=== PATIENT | male | born 1940 | race Caucasian/White ===

== ENCOUNTER 2018-11-23 18:50 | Emergency (ER) | payer MEDICARE ==
[~2018-11-23] VITALS: Ht 180.3 cm; Wt 109.1 kg
[~2018-11-23 18:50] MED LIST: ASPI1CPM9 PO; NIA500ERT PO; NO HOME MEDS; THI100T PO; ZET10T PO
[2018-11-23 19:57] LABS: BASOPHILS % (AUTO) 0.5 % (0-1); EOSINOPHILS # (AUTO) 0.1 X10'3 (0-0.9); EOSINOPHILS % (AUTO) 1.1 % (0-6); LYMPHOCYTES # (AUTO) 1.1 X10'3 (1.1-4.8); LYMPHOCYTES % (AUTO) 13.4 % (21-51); MEAN CORPUSCULAR HEMOGLOBIN 32.1 PG (27.0-31.0); MEAN CORPUSCULAR HGB CONC 34.7 g/dL (33.0-36.5); MEAN CORPUSCULAR VOLUME 92.6 FL (78-98); MEAN PLATELET VOLUME 8.1 FL (7.4-10.4); MONOCYTES # (AUTO) 0.5 X10'3 (0-0.9); MONOCYTES % (AUTO) 5.9 % (2-12); NEUTROPHILS # (AUTO) 6.7 X10'3 (1.8-7.7); NEUTROPHILS % (AUTO) 79.1 % (42-75); PLATELET COUNT 259 X10'3 (140-440); RED BLOOD COUNT 4.97 X10'6 (4.70-6.10); RED CELL DISTRIBUTION WIDTH 13.2 % (11.5-14.5); WHITE BLOOD COUNT 8.4 X10'3 (4.5-11.0)
[2018-11-23 20:16] LABS: ALANINE AMINOTRANSFERASE 57 U/L (12-78); ALBUMIN 3.6 G/DL (3.4-5.0); ALKALINE PHOSPHATASE 108 IU/L (46-116); ANION GAP 10 (8-16); ASPARTATE AMINO TRANSFERASE 22 U/L (10-37); BILIRUBIN,TOTAL 0.2 MG/DL (0.1-1.0); BLOOD UREA NITROGEN 18 MG/DL (7-18); BUN/CREATININE RATIO 13.6 (5.4-32.0); CALCIUM 9.4 MG/DL (8.5-10.1); CHLORIDE 104 MMOL/L (99-107); CREATININE 1.32 MG/DL (0.60-1.10); GLUCOSE 157 MG/DL (70-104); POTASSIUM 4.3 MMOL/L (3.5-5.1); SODIUM 139 MMOL/L (135-145); TOTAL CARBON DIOXIDE 25.1 MMOL/L (24-32); TOTAL PROTEIN 7.3 G/DL (6.4-8.2); eGFR 53 ML/MIN
[2018-11-23 20:29] LABS: PARTIAL THROMBOPLASTIN TIME 25 SECONDS (22-32)
[2018-11-23] MEDS ORDERED: ROSU10TA2 PO (22:06)
[2018-11-23] MEDS ORDERED: METF500T PO (22:06)
[2018-11-23] MEDS ORDERED: OXYB5TAB11 PO (22:06)
[2018-11-23] MEDS ORDERED: aspirin 325mg tablet PO ONE (22:35)
[2018-11-23] MEDS ORDERED: ASPI81TA52 PO (22:36)
[2018-11-23 22:38] VITALS: BP 143/86
--- NOTE | 2018-11-23 23:12 | NUR ---
PT LEFT BEFORE HE RECEIVED HIS DISCHARGE PAPERWORK AND PT STILL HAD AN IV IN. CONTACTED PT AT HOME AND LEFT MESSAGE TO ASK PATIENT TO RETURN FOR RX AND TO HAVE IV DC'D. CONTACTED [facility] ALSO REGARDING IV.
== END 2018-11-23 23:54 | disposition home or self-care (01) ==
LOC: ER 18:51
DX: R42 Dizziness and giddiness (principal); I25.10 Atherosclerotic heart disease of native coronary artery without angina pectoris; E78.00 Pure hypercholesterolemia, unspecified; I10 Essential (primary) hypertension; I25.2 Old myocardial infarction; J44.9 Chronic obstructive pulmonary disease, unspecified; E11.9 Type 2 diabetes mellitus without complications; Z86.73 Personal history of transient ischemic attack (TIA), and cerebral infarction without residual deficits; Z98.61 Coronary angioplasty status; Z90.49 Acquired absence of other specified parts of digestive tract; Z98.890 Other specified postprocedural states; Z88.5 Allergy status to narcotic agent; Z79.82 Long term (current) use of aspirin; Z79.84 Long term (current) use of oral hypoglycemic drugs; Z79.899 Other long term (current) drug therapy
CPT/HCPCS: 36415; 71045; 80053; 84484; 85025; 85610; 85730; 93005; 99284

== ENCOUNTER 2019-03-01 15:40 | Inpatient (IN) | payer MEDICARE ==
[~2019-03-01] VITALS: Ht 180.3 cm; Wt 101.0 kg
[~2019-03-01 15:40] MED LIST changes: -ASPI1CPM9 PO; +ASPI81TA52 PO; +METF500T PO; -NIA500ERT PO; -NO HOME MEDS; +OXYB5TAB16 PO; +ROSU10TA2 PO; -THI100T PO; -ZET10T PO; +etomidate 2mg/ml inj. ONE
[2019-03-01] MEDS ORDERED: LORazepam 2 mg/ml vial IV ONE (15:50)
[2019-03-01] MEDS ORDERED: normal saline 1000ML IV soln IVB ONE ×2 (15:50→17:25)
[2019-03-01] MEDS ORDERED: acetaminophen 325mg tablet PO ONE (16:10)
[2019-03-01 16:16] LABS: BASOPHILS % (AUTO) 0.6 % (0-1); EOSINOPHILS % (AUTO) 0.2 % (0-6); HEMATOCRIT 45.2 % (42.0-52.0); HEMOGLOBIN 15.3 g/dl (14.0-17.9); LYMPHOCYTES # (AUTO) 0.4 X10'3 (1.1-4.8); MEAN CORPUSCULAR HEMOGLOBIN 31.9 PG (27.0-31.0); MEAN CORPUSCULAR HGB CONC 33.8 g/dL (33.0-36.5); MEAN CORPUSCULAR VOLUME 94.2 FL (78-98); MEAN PLATELET VOLUME 7.8 FL (7.4-10.4); MONOCYTES % (AUTO) 1.5 % (2-12); NEUTROPHILS # (AUTO) 1.3 X10'3 (1.8-7.7); NEUTROPHILS % (AUTO) 73.7 % (42-75); PLATELET COUNT 172 X10'3 (140-440); RED BLOOD COUNT 4.79 X10'6 (4.70-6.10); RED CELL DISTRIBUTION WIDTH 14.4 % (11.5-14.5); WHITE BLOOD COUNT 1.7 X10'3 (4.5-11.0)
[2019-03-01 16:32] LABS: ALANINE AMINOTRANSFERASE 180 U/L (12-78); ALBUMIN 3.3 G/DL (3.4-5.0); ALBUMIN/GLOBULIN RATIO 0.8 (1.1-1.5); ALKALINE PHOSPHATASE 154 IU/L (46-116); ANION GAP 14 (8-16); ASPARTATE AMINO TRANSFERASE 137 U/L (10-37); BLOOD UREA NITROGEN 18 MG/DL (7-18); BUN/CREATININE RATIO 12.6 (5.4-32.0); CALCIUM 9.1 MG/DL (8.5-10.1); CHLORIDE 101 MMOL/L (99-107); CREATININE 1.43 MG/DL (0.60-1.10); GLUCOSE 158 MG/DL (70-104); POTASSIUM 4.2 MMOL/L (3.5-5.1); SODIUM 137 MMOL/L (135-145); TOTAL CARBON DIOXIDE 21.9 MMOL/L (24-32); TOTAL PROTEIN 7.4 G/DL (6.4-8.2); eGFR 48 ML/MIN
[2019-03-01 16:35] LABS: NUCLEATED RED BLOOD CELLS 1 /100WBC (0-0); TOTAL CELLS COUNTED 100
[2019-03-01 16:37] LABS: PLATELET ESTIMATE NORMAL; POLYCHROMASIA FEW
[2019-03-01] MEDS ORDERED: piperacillin/tazo 4.5gm/100ml 100 ML IV STA (16:38)
[2019-03-01 16:40] LABS: MAGNESIUM 1.8 MG/DL (1.5-2.4); TROPONIN I 0.06 NG/ML (0.0-0.05)
[2019-03-01] MEDS ORDERED: normal saline 1000ML IV soln IV ONE (16:40)
[2019-03-01] MEDS ORDERED: CefTRIAXone 2gm/D5W 50ml 50 ML IV ONE (16:40)
[2019-03-01 17:00] LABS: PARTIAL THROMBOPLASTIN TIME 28 SECONDS (22-32)
--- NOTE | 2019-03-01 17:18 | NUR ---
Dr James at bedside at this time to assess patient on room air, SPO2 dropped to 89%, placed back on simple mask on 4L. MD made aware of T 102.1, also recomended 1 more liter of NS as recommended per sepsis protocol. MD to enter order for 1L NS at 500 ml/hr. Patient HOB elevated, tremors present but significantly improved.
[2019-03-01] MEDS ORDERED: IPRA4AER IH (17:29)
[2019-03-01] MEDS ORDERED: OXYB10TA4 PO (17:29)
[2019-03-01] MEDS ORDERED: POLY17PO10 PO (17:29)
[2019-03-01] MEDS ORDERED: BUDE10.22 INH (17:29)
[2019-03-01] MEDS ORDERED: DULO20CA50 PO (17:29)
[2019-03-01] MEDS ORDERED: ROSU20TA31 PO (17:29)
[2019-03-01] MEDS ORDERED: magnesium 2GM in 50ml NS 50 ML IV PRN (18:30)
[2019-03-01] MEDS ORDERED: ondansetron/PF 4mg/2ml inj IV PRN (18:30)
[2019-03-01] MEDS ORDERED: dextrose 50%-water 50ml dispensing syringe IV PRN (18:30)
[2019-03-01] MEDS ORDERED: magnesium hydroxide 30ml (MOM) UD suspension PO PRN (18:30)
[2019-03-01] MEDS ORDERED: magnesium 4gm in 100ml NS 100 ML IV PRN (18:30)
[2019-03-01] MEDS ORDERED: thiamine 100mg/ml 2ml inj. IV ONE (18:30)
[2019-03-01] MEDS ORDERED: morphine 2 MG/ML inj. syringe IV PRN (18:30)
[2019-03-01] MEDS ORDERED: haloperidol 5mg tablet PO PRN (18:30)
[2019-03-01] MEDS ORDERED: acetaminophen 325mg tablet PO PRN ×2 (18:30)
[2019-03-01] MEDS ORDERED: morphine 4 MG/ML inj SYRINge IV PRN (18:30)
[2019-03-01] MEDS ORDERED: potassium Cl 20 mEq SR tablet PO PRN ×2 (18:30)
[2019-03-01] MEDS ORDERED: haloperidol lactate 5mg/ml inj IM PRN (18:30)
[2019-03-01] MEDS ORDERED: magnesium Cl slow-release 64mg tablet PO PRN (18:30)
[2019-03-01] MEDS ORDERED: HYDROcodone/acetaminophen 5mg/325mg tablet PO PRN (18:50)
[2019-03-01 19:26] LABS: CLARITY,URINE CLOUDY (Clear); COLOR,URINE AMBER (Yellow); GLUCOSE, URINE NEGATIVE (Neg); KETONES,URINE 15 mg/dl (Neg); LEUKOCYTE ESTERASE ,URINE SMALL (Neg); NITRITES, URINE POSITIVE (Neg); OCCULT BLOOD,URINE MODERATE (Neg); PH,URINE 5.5 (4.8-8.0); PROTEIN,URINE 100 mg/dl (Neg)
[2019-03-01 19:29] LABS: UA COLLECTION TYPE FOLEY CATH
[2019-03-01 19:39] LABS: BACTERIA,URINE 4+ /HPF (Neg); RBC,URINE NONE SEEN /HPF (0-2); SQUAMOUS EPITHELIAL CELL,UR FEW /LPF (FEW); WBC,URINE 20-30 /HPF (0-4)
[2019-03-01] MEDS ORDERED: aspirin 325mg tablet PO ONE (19:40)
[2019-03-01] MEDS ORDERED: enoxaparin 100mg/ml syringe SUBCUT ONE (19:40)
[2019-03-01] MEDS ORDERED: vancomycin/NS 1 GM ADD-VANTAGE 250 ML IV SCH (20:00)
[2019-03-01] MEDS: LORazepam 2 mg/ml vial IV PRN (20:43)
[2019-03-01] MEDS: normal saline 1000ml 1,000 ML IV SCH (20:47)
[2019-03-01] MEDS: ipratropium/albuterol 3ml nebule NEB PRN (20:56)
--- NOTE | 2019-03-01 23:15 | NUR ---
REPORT CALLED TO MAC IN ICU , CASE DISCUSSED, TREATMENT PLAN REVIEWED,EVP CHIEF EXPLORATION OFFICER AGREES TO ASSUME CARE OF PATIENT. PATIENT TO BE TRANSPORTED ON MONITOR WITH BELONGINGS.
--- NOTE | 2019-03-01 23:39 | NUR ---
RN Note -Received pt from ED. Pt is drowsy, but awake and and oriented. STERN, answers questions appropriately, denies pain.
[2019-03-01 23:45] VITALS: BP 103/69
[2019-03-02] VITALS (24 sets, daily range): BP systolic 90–144; BP diastolic 33–83
[2019-03-02] MEDS: ipratropium/albuterol 3ml nebule NEB PRN (01:59)
[2019-03-02] MEDS: piperacillin/tazo 3.375gm/50ml 50 ML IV SCH ×3 (02:06→16:18)
[2019-03-02 05:37] LABS: HEMOGLOBIN 13.6 g/dl (14.0-17.9)
[2019-03-02 05:39] LABS: BASOPHILS % (AUTO) 0.2 % (0-1); EOSINOPHILS # (AUTO) 0.1 X10'3 (0-0.9); EOSINOPHILS % (AUTO) 0.6 % (0-6); LYMPHOCYTES # (AUTO) 1.1 X10'3 (1.1-4.8); MEAN CORPUSCULAR HEMOGLOBIN 32.7 PG (27.0-31.0); MEAN CORPUSCULAR VOLUME 96.2 FL (78-98); MEAN PLATELET VOLUME 8.3 FL (7.4-10.4); MONOCYTES # (AUTO) 1.1 X10'3 (0-0.9); MONOCYTES % (AUTO) 10.9 % (2-12); NEUTROPHILS % (AUTO) 77.3 % (42-75); PLATELET COUNT 152 X10'3 (140-440); RED BLOOD COUNT 4.16 X10'6 (4.70-6.10); RED CELL DISTRIBUTION WIDTH 14.7 % (11.5-14.5); WHITE BLOOD COUNT 10.4 X10'3 (4.5-11.0)
[2019-03-02 05:49] LABS: ALBUMIN 2.6 G/DL (3.4-5.0); ANION GAP 9 (8-16); BLOOD UREA NITROGEN 19 MG/DL (7-18); BUN/CREATININE RATIO 14.5 (5.4-32.0); CALCIUM 8.1 MG/DL (8.5-10.1); CHLORIDE 108 MMOL/L (99-107); CREATININE 1.31 MG/DL (0.60-1.10); GLUCOSE 123 MG/DL (70-104); MAGNESIUM 2.2 MG/DL (1.5-2.4); POTASSIUM 4.5 MMOL/L (3.5-5.1); SODIUM 140 MMOL/L (135-145); TOTAL CARBON DIOXIDE 23.2 MMOL/L (24-32); eGFR 53 ML/MIN
[2019-03-02 06:18] LABS: TROPONIN I 2.87 NG/ML (0.0-0.05)
--- NOTE | 2019-03-02 06:39 | NUR ---
Patient in room CICU 2008. I have received report from DOC Rosas and had the opportunity to ask questions and assume patient care.
[2019-03-02 07:01] LABS: HEMOGLOBIN A1C 6.7 % (4.5-6.2)
[2019-03-02] MEDS: ipratropium/albuterol 3ml nebule IH SCH ×4 (07:06→19:21)
[2019-03-02 07:27] LABS: PLATELET ESTIMATE NORMAL; POLYCHROMASIA 1+; TOTAL CELLS COUNTED 100
[2019-03-02] MEDS: normal saline 1000ml 1,000 ML IV SCH ×2 (07:47→21:07)
[2019-03-02] MEDS ORDERED: pantoprazole 40 MG vial IV SCH (08:00)
[2019-03-02] MEDS: polyethylene glycol 3350 17gm powd pack PO SCH (08:00)
[2019-03-02] MEDS: multivitamins, therapeutics tablet PO SCH (08:01)
[2019-03-02] MEDS: atorvastatin 20mg tablet PO SCH (08:01)
[2019-03-02] MEDS: thiamine 100mg tablet PO SCH (08:01)
[2019-03-02] MEDS: oxybutynin 5mg tablet PO SCH ×2 (08:01→20:08)
[2019-03-02] MEDS: folic acid 1mg tablet PO SCH (08:01)
[2019-03-02] MEDS: chlordiazePOXIDE 25mg capsule PO SCH ×2 (10:20→16:12)
[2019-03-02] MEDS: enoxaparin 80mg/0.8ml syringe SUBCUT SCH ×2 (10:21→20:09)
[2019-03-02] MEDS: budesonide 0.5mg/2ml UD nebule IH SCH ×2 (10:50→19:21)
[2019-03-02] MEDS: LORazepam 2 mg/ml vial IV PRN ×7 (11:31→20:16)
--- NOTE | 2019-03-02 13:47 | NUR ---
Dr. Parker aware of trop 3.78. No new orders at this time
[2019-03-02] MEDS ORDERED: aspirin 325mg tablet PO ONE (15:45)
--- NOTE | 2019-03-02 18:30 | NUR ---
Patient in room CICU 2008. I have received report from DOC Taylor and had the opportunity to ask questions and assume patient care.
--- NOTE | 2019-03-02 18:45 | NUR ---
Problems reprioritized. Patient report given, questions answered & plan of care reviewed with DOC Vergara.
[2019-03-03] VITALS (24 sets, daily range): BP systolic 89–184; BP diastolic 44–125
[2019-03-03] MEDS: LORazepam 2 mg/ml vial IV PRN ×4 (00:11→08:27)
[2019-03-03] MEDS: piperacillin/tazo 3.375gm/50ml 50 ML IV SCH ×3 (00:34→17:22)
[2019-03-03] MEDS: chlordiazePOXIDE 25mg capsule PO SCH ×4 (00:34→16:00)
--- NOTE | 2019-03-03 01:00 | NUR ---
Unable to give Librium 0000 dose due to patient's mentation. Patient failed bedside swallow evaluation after mentation worsened as withdrawing symptoms worsened.
[2019-03-03] MEDS: acetaminophen 650mg rectal suppository RC PRN ×3 (01:21→20:00)
[2019-03-03] MEDS: ipratropium/albuterol 3ml nebule NEB PRN (03:10)
[2019-03-03 05:52] LABS: BASOPHILS % (AUTO) 0.3 % (0-1); EOSINOPHILS # (AUTO) 0.1 X10'3 (0-0.9); EOSINOPHILS % (AUTO) 0.8 % (0-6); HEMATOCRIT 42.7 % (42.0-52.0); HEMOGLOBIN 14.3 g/dl (14.0-17.9); LYMPHOCYTES # (AUTO) 0.6 X10'3 (1.1-4.8); LYMPHOCYTES % (AUTO) 7.6 % (21-51); MEAN CORPUSCULAR HEMOGLOBIN 31.8 PG (27.0-31.0); MEAN CORPUSCULAR HGB CONC 33.4 g/dL (33.0-36.5); MEAN CORPUSCULAR VOLUME 95.2 FL (78-98); MEAN PLATELET VOLUME 8.5 FL (7.4-10.4); MONOCYTES # (AUTO) 1.1 X10'3 (0-0.9); MONOCYTES % (AUTO) 13.3 % (2-12); NEUTROPHILS # (AUTO) 6.6 X10'3 (1.8-7.7); PLATELET COUNT 164 X10'3 (140-440); RED BLOOD COUNT 4.48 X10'6 (4.70-6.10); WHITE BLOOD COUNT 8.4 X10'3 (4.5-11.0)
[2019-03-03] MEDS: normal saline 1000ml 1,000 ML IV SCH ×2 (05:57→23:47)
[2019-03-03 06:14] LABS: ALBUMIN 2.7 G/DL (3.4-5.0); ANION GAP 14 (8-16); BLOOD UREA NITROGEN 16 MG/DL (7-18); BUN/CREATININE RATIO 14.4 (5.4-32.0); CALCIUM 8.7 MG/DL (8.5-10.1); CHLORIDE 104 MMOL/L (99-107); CREATININE 1.11 MG/DL (0.60-1.10); GLUCOSE 108 MG/DL (70-104); MAGNESIUM 2.2 MG/DL (1.5-2.4); POTASSIUM 3.9 MMOL/L (3.5-5.1); SODIUM 140 MMOL/L (135-145); eGFR 64 ML/MIN
--- NOTE | 2019-03-03 06:30 | NUR ---
Patient in room CICU 2009. I have received report from nick and had the opportunity to ask questions and assume patient care.
--- NOTE | 2019-03-03 06:44 | NUR ---
Problems reprioritized. Patient report given, questions answered & plan of care reviewed with DOC Wilson.
[2019-03-03] MEDS: ipratropium/albuterol 3ml nebule IH SCH ×4 (07:10→18:50)
[2019-03-03] MEDS: budesonide 0.5mg/2ml UD nebule IH SCH ×2 (07:10→18:50)
[2019-03-03] MEDS ORDERED: VANCOMYCIN LEVEL IV ONE (07:30)
[2019-03-03] MEDS: folic acid 1mg tablet PO SCH (08:00)
[2019-03-03] MEDS: atorvastatin 20mg tablet PO SCH (08:00)
[2019-03-03] MEDS: thiamine 100mg tablet PO SCH (08:00)
[2019-03-03] MEDS: polyethylene glycol 3350 17gm powd pack PO SCH (08:00)
[2019-03-03] MEDS: duloxetine 20mg capsule.DR PO SCH (08:00)
[2019-03-03] MEDS: multivitamins, therapeutics tablet PO SCH (08:00)
[2019-03-03] MEDS: aspirin 81mg tablet.DR PO SCH (08:00)
[2019-03-03] MEDS: oxybutynin 5mg tablet PO SCH ×2 (08:00→20:00)
[2019-03-03] MEDS ORDERED: aspirin 81mg tab.chew PO SCH (08:30)
--- NOTE | 2019-03-03 08:40 | NUR ---
pt opened his eyes once to care, mostly not after.pt tachypneic with restlessness- stridor- ativan 4mg given with some calmness
[2019-03-03] MEDS: enoxaparin 80mg/0.8ml syringe SUBCUT SCH ×2 (08:41→20:00)
[2019-03-03] MEDS ORDERED: dexmedetomidin/NS 400mcg/100ml 100 ML IV SCH (09:20)
--- NOTE | 2019-03-03 09:27 | NUR ---
Dr. Braun ordered for precedex gtt to be started IV per protocol.
[2019-03-03] MEDS: ESOMEPRAZOLE 40 MG VIAL IV SCH (09:51)
[2019-03-03] MEDS: dexmedetomidin/NS 400mcg/100ml 100 ML IV SCH ×2 (10:07→17:25)
--- NOTE | 2019-03-03 10:15 | NUR ---
precedex started at starting dose- pt calmer- tyleno supp given- temp decreasing
--- NOTE | 2019-03-03 12:00 | NUR ---
ht down to 90's- with sbp-to 90's- precedex up to .5 then back down to .4
--- NOTE | 2019-03-03 15:00 | NUR ---
temp to 36.5 after supp. pt quite sleepy, not really responding to pain now. precedex down to .2- hr to 80's and sbp to 80's with map of 60. dr davis back to check on pt- no longer struggling with high rr- will hold of intubation. o2 to mouth for mouth breathing with sats from 89 to 92 when fio2 to 6lnc from 3l.
--- NOTE | 2019-03-03 15:49 | NUR ---
nc switched to simple mask at 8 liters by rt- sats at 92 % in and out updated. diet not offered or po meds as pt at risk for aspiration and mostly sedated and not awake
--- NOTE | 2019-03-03 17:44 | NUR ---
pt moaned with turn- precedex down then up again with increased rr and hr.
[2019-03-03] MEDS ORDERED: LORazepam 1 MG tablet PO PRN (18:30)
[2019-03-03] MEDS ORDERED: LORazepam 2 mg/ml vial IV PRN (18:30)
--- NOTE | 2019-03-03 18:31 | NUR ---
Patient in room CICU 2008. I have received report from DOC Wilson and had the opportunity to ask questions and assume patient care.
[2019-03-03] MEDS: lactobacillus rhamnosus 10,000 MMU CELLS/CAPSULE PO SCH (20:00)
[2019-03-03] MEDS ORDERED: furosemide 20 MG/2 ML vial IV ONE (20:00)
--- NOTE | 2019-03-03 20:30 | NUR ---
Around 1899, patient work of breathing began to increase, RR was increased to 30s and 40s, O2 was in mid to high 80's, HR was increased to 115-120's from 80-90's, BP increased to 190 systolic from 120, and temperature spiked from 37.1 to 38.6. July,HOLLOW TILE PARTITION ERECTOR was notified of change in patient's condition. ABG was ordered, ABG showed patient was acidotic and in need for bipap, bipap was placed on patient at 50% fio2 and will be titrated as patient tolerates. Xray was also obtained and showed pulmonary congestion. Lasix was ordered and given. CMP ordered and abnormal labs reviewed with HOLLOW TILE PARTITION ERECTOR. Repeat ABG has been ordered for 2129. Will continue to monitor patient and notify HOLLOW TILE PARTITION ERECTOR of changes as they arise.
[2019-03-03 20:36] LABS: BASOPHILS % (AUTO) 0.3 % (0-1); EOSINOPHILS # (AUTO) 0.1 X10'3 (0-0.9); EOSINOPHILS % (AUTO) 0.8 % (0-6); HEMATOCRIT 45.7 % (42.0-52.0); HEMOGLOBIN 14.8 g/dl (14.0-17.9); LYMPHOCYTES # (AUTO) 0.5 X10'3 (1.1-4.8); LYMPHOCYTES % (AUTO) 6.9 % (21-51); MEAN CORPUSCULAR HGB CONC 32.4 g/dL (33.0-36.5); MEAN CORPUSCULAR VOLUME 95.8 FL (78-98); MEAN PLATELET VOLUME 8.2 FL (7.4-10.4); MONOCYTES # (AUTO) 1.1 X10'3 (0-0.9); MONOCYTES % (AUTO) 14.4 % (2-12); NEUTROPHILS % (AUTO) 77.6 % (42-75); PLATELET COUNT 172 X10'3 (140-440); RED BLOOD COUNT 4.77 X10'6 (4.70-6.10); RED CELL DISTRIBUTION WIDTH 15.6 % (11.5-14.5); WHITE BLOOD COUNT 7.7 X10'3 (4.5-11.0)
[2019-03-03 20:56] LABS: ALANINE AMINOTRANSFERASE 119 U/L (12-78); ALBUMIN 2.6 G/DL (3.4-5.0); ALBUMIN/GLOBULIN RATIO 0.6 (1.1-1.5); ALKALINE PHOSPHATASE 127 IU/L (46-116); ANION GAP 11 (8-16); ASPARTATE AMINO TRANSFERASE 47 U/L (10-37); BILIRUBIN,TOTAL 0.5 MG/DL (0.1-1.0); BLOOD UREA NITROGEN 17 MG/DL (7-18); BUN/CREATININE RATIO 15.7 (5.4-32.0); CALCIUM 8.7 MG/DL (8.5-10.1); CHLORIDE 108 MMOL/L (99-107); CREATININE 1.08 MG/DL (0.60-1.10); GLUCOSE 130 MG/DL (70-104); POTASSIUM 5.3 MMOL/L (3.5-5.1); SODIUM 140 MMOL/L (135-145); TOTAL CARBON DIOXIDE 21.2 MMOL/L (24-32); eGFR 66 ML/MIN
[2019-03-03] MEDS ORDERED: atorvastatin 20mg tablet PO SCH (21:00)
[2019-03-03 21:04] LABS: MAGNESIUM 2.4 MG/DL (1.5-2.4); PHOSPHORUS 3.8 MG/DL (2.3-4.5)
--- NOTE | 2019-03-03 21:15 | NUR ---
Patient's blood pressure dropped to 83/48, HR has slowed to 90's, work of breathing has improved, respirations are in 20's, temperature remains the same despite tylenol suppository administration, NUTRIENT MANAGEMENT SPECIALIST aware.
[2019-03-04] VITALS (24 sets, daily range): BP systolic 89–178; BP diastolic 48–129
[2019-03-04] MEDS: piperacillin/tazo 3.375gm/50ml 50 ML IV SCH ×3 (00:24→16:19)
[2019-03-04] MEDS: dexmedetomidin/NS 400mcg/100ml 100 ML IV SCH ×4 (02:41→22:08)
[2019-03-04 06:06] LABS: BASOPHILS % (AUTO) 0.3 % (0-1); EOSINOPHILS % (AUTO) 0.7 % (0-6); HEMATOCRIT 38.2 % (42.0-52.0); HEMOGLOBIN 12.5 g/dl (14.0-17.9); LYMPHOCYTES # (AUTO) 0.6 X10'3 (1.1-4.8); LYMPHOCYTES % (AUTO) 9.8 % (21-51); MEAN CORPUSCULAR HEMOGLOBIN 30.7 PG (27.0-31.0); MEAN CORPUSCULAR HGB CONC 32.8 g/dL (33.0-36.5); MEAN CORPUSCULAR VOLUME 93.7 FL (78-98); MONOCYTES # (AUTO) 0.9 X10'3 (0-0.9); MONOCYTES % (AUTO) 13.9 % (2-12); NEUTROPHILS # (AUTO) 4.6 X10'3 (1.8-7.7); NEUTROPHILS % (AUTO) 75.3 % (42-75); PLATELET COUNT 177 X10'3 (140-440); RED BLOOD COUNT 4.08 X10'6 (4.70-6.10); WHITE BLOOD COUNT 6.2 X10'3 (4.5-11.0)
[2019-03-04 06:19] LABS: ALBUMIN 2.1 G/DL (3.4-5.0); ANION GAP 9 (8-16); BLOOD UREA NITROGEN 18 MG/DL (7-18); BUN/CREATININE RATIO 18.6 (5.4-32.0); CHLORIDE 109 MMOL/L (99-107); CREATININE 0.97 MG/DL (0.60-1.10); GLUCOSE 144 MG/DL (70-104); POTASSIUM 4.4 MMOL/L (3.5-5.1); SODIUM 141 MMOL/L (135-145); TOTAL CARBON DIOXIDE 22.9 MMOL/L (24-32); eGFR 75 ML/MIN
--- NOTE | 2019-03-04 06:28 | NUR ---
Problems reprioritized. Patient report given, questions answered & plan of care reviewed with DOC Rainey.
[2019-03-04] MEDS: normal saline 1000ml 1,000 ML IV SCH (06:36)
[2019-03-04] MEDS: budesonide 0.5mg/2ml UD nebule IH SCH ×2 (06:54→19:12)
[2019-03-04] MEDS: ipratropium/albuterol 3ml nebule IH SCH ×4 (06:54→19:12)
[2019-03-04] MEDS: oxybutynin 5mg tablet PO SCH ×2 (08:00→18:22)
[2019-03-04] MEDS: duloxetine 20mg capsule.DR PO SCH (08:00)
[2019-03-04] MEDS ORDERED: DEXTROSE 5% IV SCH (08:00)
[2019-03-04] MEDS: lactobacillus rhamnosus 10,000 MMU CELLS/CAPSULE PO SCH ×2 (08:00→18:22)
[2019-03-04] MEDS: chlordiazePOXIDE 25mg capsule PO SCH ×4 (08:00→21:19)
[2019-03-04] MEDS: polyethylene glycol 3350 17gm powd pack PO SCH (08:00)
[2019-03-04] MEDS ORDERED: FOLIC ACID IV SCH (08:00)
[2019-03-04] MEDS: aspirin 81mg tablet.DR PO SCH (08:00)
[2019-03-04] MEDS ORDERED: THIAMINE IV SCH (08:00)
[2019-03-04] MEDS: atorvastatin 20mg tablet PO SCH (08:00)
[2019-03-04] MEDS ORDERED: WATER IV SCH (08:00)
[2019-03-04] MEDS: MVI, adult No.4 with vit. K 10 ML in dextrose 5% water 500ml 500 ML IV SCH ×2 (08:05)
[2019-03-04] MEDS: ESOMEPRAZOLE 40 MG VIAL IV SCH (08:05)
[2019-03-04] MEDS: enoxaparin 80mg/0.8ml syringe SUBCUT SCH ×2 (08:06→20:14)
--- NOTE | 2019-03-04 18:20 | NUR ---
Patient in room CICU 2008. I have received report from DOC Rainey and had the opportunity to ask questions and assume patient care.
[2019-03-04] MEDS: LORazepam 2 mg/ml vial IV PRN ×2 (18:53→23:51)
--- NOTE | 2019-03-04 19:09 | NUR ---
Patient became agitated and restless, HR is low 100s, RR in 30s, maintained sats in mid 90's with bipap, became hypertensive 178/129. Patient received 4mg of Ativan per MD order and Precedex was increased. It took approximately 10 minutes to calm patient down. He is now resting comfortably, BP 134/71, HR in 80's, RR in 20's. Patient has a fever 38.4 now, will give patient tylenol suppository after allowing patient to recover a little more. Noticed that patient has discoloration to his nose, will attempt to give patient break from bipap and check for blanching as well as take a picture for our records.
--- NOTE | 2019-03-04 19:34 | NUR ---
Bipap mask is now off patient to give patient's nose a break, the discoloration is purple and nonblanchable. Pictures have been taken and placed in the chart. Patient is now on a high flow nasal cannula at 10L and is tolerating well. Will place patient on a face mask bipap if he require bipap at later time.
[2019-03-05] VITALS (24 sets, daily range): BP systolic 77–221; BP diastolic 41–124
[2019-03-05] MEDS: ipratropium/albuterol 3ml nebule NEB PRN
[2019-03-05] MEDS: piperacillin/tazo 3.375gm/50ml 50 ML IV SCH ×3 (00:26→15:15)
[2019-03-05] MEDS: LORazepam 2 mg/ml vial IV PRN (01:54)
--- NOTE | 2019-03-05 02:55 | NUR ---
Spoke to Kimberly Snider NP regarding patient being in distress. Patient was given ativan about an hour ago and precedex was titrated up and patient did not fully recover. I have gone up on his fio2 which is up to 50% at this time due to sats being in mid to high 80's. Patient is also hypertensive, last blood pressure being 227/123. LABORER ROAD ordered that I continue to go up on his precedex and to get ABG. I have gone up on the precedex and paged RT after putting in the ABG order. Now awaiting RT.
[2019-03-05] MEDS: normal saline 1000ml 1,000 ML IV SCH ×2 (03:05→14:46)
[2019-03-05] MEDS ORDERED: midazolam 2 mg/2 ml injection ONE (03:31)
[2019-03-05 03:48] LABS: ALBUMIN 2.4 G/DL (3.4-5.0); ANION GAP 10 (8-16); BLOOD UREA NITROGEN 19 MG/DL (7-18); BUN/CREATININE RATIO 20.9 (5.4-32.0); CALCIUM 8.8 MG/DL (8.5-10.1); CHLORIDE 108 MMOL/L (99-107); CREATININE 0.91 MG/DL (0.60-1.10); GLUCOSE 152 MG/DL (70-104); POTASSIUM 4.3 MMOL/L (3.5-5.1); SODIUM 141 MMOL/L (135-145); TOTAL CARBON DIOXIDE 23.3 MMOL/L (24-32); eGFR 81 ML/MIN
[2019-03-05 03:52] LABS: BASOPHILS % (AUTO) 0.4 % (0-1); EOSINOPHILS # (AUTO) 0.1 X10'3 (0-0.9); EOSINOPHILS % (AUTO) 0.9 % (0-6); HEMATOCRIT 46.4 % (42.0-52.0); HEMOGLOBIN 15.3 g/dl (14.0-17.9); LYMPHOCYTES # (AUTO) 1.3 X10'3 (1.1-4.8); LYMPHOCYTES % (AUTO) 12.5 % (21-51); MEAN CORPUSCULAR HEMOGLOBIN 31.3 PG (27.0-31.0); MEAN CORPUSCULAR VOLUME 94.8 FL (78-98); MEAN PLATELET VOLUME 8.4 FL (7.4-10.4); MONOCYTES # (AUTO) 1.1 X10'3 (0-0.9); MONOCYTES % (AUTO) 10.7 % (2-12); NEUTROPHILS # (AUTO) 7.5 X10'3 (1.8-7.7); NEUTROPHILS % (AUTO) 75.5 % (42-75); PLATELET COUNT 214 X10'3 (140-440); RED CELL DISTRIBUTION WIDTH 14.9 % (11.5-14.5)
[2019-03-05 04:09] LABS: ALANINE AMINOTRANSFERASE 94 U/L (12-78); ALBUMIN/GLOBULIN RATIO 0.5 (1.1-1.5); ALKALINE PHOSPHATASE 169 IU/L (46-116); ASPARTATE AMINO TRANSFERASE 38 U/L (10-37); BILIRUBIN,DIRECT 0.4 MG/DL (0-0.3); BILIRUBIN,TOTAL 0.7 MG/DL (0.1-1.0); TOTAL PROTEIN 7.2 G/DL (6.4-8.2)
[2019-03-05] MEDS ORDERED: etomidate 2mg/ml inj. IV ONE (04:20)
[2019-03-05] MEDS ORDERED: succinylcholine 20mg/ml inj IV ONE (04:20)
[2019-03-05] MEDS: dexmedetomidin/NS 400mcg/100ml 100 ML IV SCH ×3 (04:27→22:46)
[2019-03-05] MEDS: acetaminophen 650mg rectal suppository RC PRN (04:29)
[2019-03-05 04:56] LABS: AMYLASE 18 U/L (25-115); LIPASE 72 U/L (73-393)
--- NOTE | 2019-03-05 04:56 | NUR ---
Patient condition continued to worsen. BP remained in 200's systolic, Respirations remained high, O2 remained in 80's despite continuing to increase his fio2 on bipap. ABG results: ph 7.097, co2 78.6, po2 58.2, hoc3 23. Stat xray was done and showed increased pulmonary congestion. July,OFFICE SERVICES ASSOCIATE notified and decided that patient needed to be intubated. ER MD came up and intubated at 0350 after administration of 25 of etimodate and 150 of succ. OG tube was inserted confirmed placement with auscultation and xray, connected to LIS. Patient vent settings are a/c vc on 100% fio2, vt 450,rr 16, peep 5. Repeat ABG showed improvement so fio2 was brought down to 90%. Patient is now resting comfortably on 25mcg of fentanyl and 1mcg of precedex. Will continue to monitor.
[2019-03-05 05:10] LABS: ABG BASE EXCESS -6.5 mmol/L (-2.0-3.0); ABG HCO3 21.5 mmol/L (22.0-26.0); ABG OXYGEN SATURATION 96.4 % (95-98); ABG PCO2 (T) 57.2 mmHg (35.0-45.0); ABG PH (T) 7.204 (7.350-7.450); ABG PO2 (T) 107.9 mmHg (83-108); ALLEN'S TEST Positive; FCOHb 0.7 % (0.5-1.5); FMetHb 0.3 % (0.3-1.12); FO2Hb 95.4 % (94-100); MINUTE VOLUME 16 L/min; PATIENT TEMPERATURE 38.9; PEEP 5 cm H2O; RESPIRATORY RATE 16 b/min; RESPIRATORY RATE (OBSERVED) 31 b/min; TIDAL VOLUME 450 mL
[2019-03-05 05:16] LABS: ABG PCO2 (T) 78.6 mmHg (35.0-45.0); ABG PH (T) 7.097 (7.350-7.450); ABG PO2 (T) 58.2 mmHg (83-108); FCOHb 0.3 % (0.5-1.5); FMetHb 0.3 % (0.3-1.12); FO2Hb 75.5 % (94-100); MINUTE VOLUME 12 L/min; PATIENT TEMPERATURE 39.2; RESPIRATORY RATE 20 b/min; RESPIRATORY RATE (OBSERVED) 23 b/min
[2019-03-05 05:31] LABS: ABG BASE EXCESS -6.5 mmol/L (-2.0-3.0); ABG HCO3 19.3 mmol/L (22.0-26.0); ABG PCO2 (T) 42.1 mmHg (35.0-45.0); ABG PH (T) 7.285 (7.350-7.450); ABG PO2 (T) 75.4 mmHg (83-108); FCOHb 0.4 % (0.5-1.5); FMetHb 0.3 % (0.3-1.12); FO2Hb 93.3 % (94-100); MINUTE VOLUME 20 L/min; PATIENT TEMPERATURE 38.6; RESPIRATORY RATE 20 b/min; RESPIRATORY RATE (OBSERVED) 20 b/min; TOTAL HEMOGLOBIN 13.6 G/dl (14.0-17.9)
[2019-03-05 05:36] LABS: ABG BASE EXCESS -10.2 mmol/L (-2.0-3.0); ABG HCO3 19.7 mmol/L (22.0-26.0); ABG OXYGEN SATURATION 98.7 % (95-98); ABG PO2 (T) 182.4 mmHg (83-108); FCOHb 0.1 % (0.5-1.5); FLOW 15 L/min; FMetHb 0.3 % (0.3-1.12); FO2Hb 98.3 % (94-100); PATIENT TEMPERATURE 38.1; TOTAL HEMOGLOBIN 15.3 G/dl (14.0-17.9)
[2019-03-05] MEDS: FENTANYL-0.9 % NACL/PF 100 ML IV PRN (05:36)
[2019-03-05] MEDS ORDERED: normal saline 250ml IV soln 250 ML IV ONE (05:55)
--- NOTE | 2019-03-05 06:06 | NUR ---
Patient's blood pressure dropped to 78/44. Fentanyl and precedex paused. July Agatha, WEB PUBLISHER notified. 250ml bolus ordered at this time. May repeat one time if blood pressure remains low.
--- NOTE | 2019-03-05 06:26 | NUR ---
Problems reprioritized. Patient report given, questions answered & plan of care reviewed with DOC Yan.
--- NOTE | 2019-03-05 06:30 | NUR ---
Patient in room CICU 2009. I have received report from Ursula ROACH and had the opportunity to ask questions and assume patient care.
[2019-03-05] MEDS: ipratropium/albuterol 3ml nebule IH SCH ×4 (07:42→18:55)
[2019-03-05] MEDS: chlordiazePOXIDE 25mg capsule PO SCH (07:52)
[2019-03-05] MEDS: polyethylene glycol 3350 17gm powd pack PO SCH (07:53)
[2019-03-05] MEDS: enoxaparin 80mg/0.8ml syringe SUBCUT SCH ×3 (07:53→22:32)
[2019-03-05] MEDS: atorvastatin 20mg tablet PO SCH (07:53)
[2019-03-05] MEDS: aspirin 81mg tablet.DR PO SCH (07:53)
[2019-03-05] MEDS: oxybutynin 5mg tablet PO SCH ×2 (07:53→20:30)
[2019-03-05] MEDS: lactobacillus rhamnosus 10,000 MMU CELLS/CAPSULE PO SCH (07:53)
[2019-03-05] MEDS: duloxetine 20mg capsule.DR PO SCH (07:57)
[2019-03-05] MEDS: budesonide 0.5mg/2ml UD nebule IH SCH ×2 (08:01→18:55)
--- NOTE | 2019-03-05 08:30 | NUR ---
Patient BP was decreased with a MAP of low 50s. Gave second 250mL bolus from Agatha's order. Patient slightly responded to this as BP increased to low 80s systolically with a MAP of barely 60. Attempting to get PICC line placed, order is in, need MD signature. ETT was charted as 23 at teeth however upon initial exam this morning at 0645 it was at 21. Rechecking it at 0715 and it was at 19 and breath sounds were heard around the tube. RT was called to bedside and ETT was advanced back to 23 at teeth and comfit was swapped for an anchorfast. Follow up cxr showed ETT back in a good position per reading radiologist.
[2019-03-05] MEDS: ESOMEPRAZOLE 40 MG VIAL IV SCH (08:56)
[2019-03-05] MEDS: MVI, adult No.4 with vit. K 10 ML in dextrose 5% water 500ml 500 ML IV SCH ×2 (08:56)
[2019-03-05] MEDS ORDERED: acetaminophen 325mg/10.15ml oral unit dose solution OGT PRN ×2 (10:58→10:59)
[2019-03-05] MEDS ORDERED: aspirin 81mg tab.chew OGT SCH (10:59)
[2019-03-05] MEDS ORDERED: LORazepam 1 MG tablet OGT PRN ×2 (11:01→18:30)
[2019-03-05] MEDS ORDERED: magnesium hydroxide 30ml (MOM) UD suspension OGT PRN (11:02)
[2019-03-05] MEDS ORDERED: POTASSIUM BICARB 20meq eff tab 20 MEQ TABLET.EFF OGT PRN ×2 (11:06)
--- NOTE | 2019-03-05 11:41 | NUR ---
Initial: Pt intubated w/ UTI, sepsis, etoh w/d and DT's per MD. Hx 3 large vodka drinks daily per MD w/ med non-compliance. Pt to go to cath today per MD while intubated. OG in place but NPO for cath. Will need nutrition support following cath given prolonged intubation needs. Receiving Banana bag. LBM 02/27 receiving miralax but no feeds or additional bowel care on fentanyl. Will monitor for additional bowel care needs once nutrition starts. RD d/w RN to d/c clear liquid diet since pt NPO/intubated. TF recs below. Rec: 1. IF TF; Vital High Protein at 100ml/hr goal. To provide 2400ml fluid, 2400kcals, 2016ml free water, and 210g protein. Initiate at 20ml/hr and advance 20ml Q8 to goal as tolerated. 2. IF TF; water flush 200ml Q4 3. IF TF; prealbumin Q /, daily wts 4. routine bowel care 5. upon extubation; advance diet per MD to carb controlled/heart healthy Addendum: 03/05/19 at [address] Amended: Links added.
[2019-03-05] MEDS: chlordiazePOXIDE 25mg capsule OGT SCH (15:15)
--- NOTE | 2019-03-05 17:51 | NUR ---
Rechecked CXR as patient had moved his ETT from 23 at the teeth back to 21. Repositioned with RT at bedside; patient tolerated well, and current CXR shows ETT in a better position.
--- NOTE | 2019-03-05 18:16 | NUR ---
Problems reprioritized. Patient report given, questions answered & plan of care reviewed with Maria Alejandra ROACH.
[2019-03-05] MEDS ORDERED: LORazepam 2 mg/ml vial IV PRN (18:30)
[2019-03-05] MEDS: lactobacillus rhamnosus 10,000 MMU CELLS/CAPSULE OGT SCH (20:30)
[2019-03-06] VITALS (25 sets, daily range): BP systolic 111–189; BP diastolic 54–79
[2019-03-06] MEDS: piperacillin/tazo 3.375gm/50ml 50 ML IV SCH ×3 (00:01→15:44)
[2019-03-06] MEDS: chlordiazePOXIDE 25mg capsule OGT SCH ×3 (00:05→15:44)
[2019-03-06 03:05] LABS: BASOPHILS % (AUTO) 0.6 % (0-1); EOSINOPHILS # (AUTO) 0.1 X10'3 (0-0.9); EOSINOPHILS % (AUTO) 1.7 % (0-6); HEMATOCRIT 36.7 % (42.0-52.0); HEMOGLOBIN 12.3 g/dl (14.0-17.9); LYMPHOCYTES % (AUTO) 12.9 % (21-51); MEAN CORPUSCULAR HEMOGLOBIN 31.2 PG (27.0-31.0); MEAN CORPUSCULAR HGB CONC 33.5 g/dL (33.0-36.5); MEAN CORPUSCULAR VOLUME 93.1 FL (78-98); MEAN PLATELET VOLUME 7.7 FL (7.4-10.4); MONOCYTES # (AUTO) 0.9 X10'3 (0-0.9); MONOCYTES % (AUTO) 11.4 % (2-12); NEUTROPHILS # (AUTO) 5.5 X10'3 (1.8-7.7); NEUTROPHILS % (AUTO) 73.4 % (42-75); PLATELET COUNT 211 X10'3 (140-440); RED BLOOD COUNT 3.94 X10'6 (4.70-6.10); RED CELL DISTRIBUTION WIDTH 14.9 % (11.5-14.5); WHITE BLOOD COUNT 7.6 X10'3 (4.5-11.0)
[2019-03-06] MEDS: FENTANYL-0.9 % NACL/PF 100 ML IV PRN ×2 (03:17→20:00)
[2019-03-06 03:18] LABS: ALBUMIN 1.8 G/DL (3.4-5.0); ANION GAP 7 (8-16); BLOOD UREA NITROGEN 16 MG/DL (7-18); BUN/CREATININE RATIO 18.8 (5.4-32.0); CALCIUM 8.5 MG/DL (8.5-10.1); CHLORIDE 110 MMOL/L (99-107); CREATININE 0.85 MG/DL (0.60-1.10); GLUCOSE 142 MG/DL (70-104); POTASSIUM 3.7 MMOL/L (3.5-5.1); SODIUM 142 MMOL/L (135-145); TOTAL CARBON DIOXIDE 24.8 MMOL/L (24-32); eGFR 87 ML/MIN
[2019-03-06 03:56] LABS: ABG BASE EXCESS 0.3 mmol/L (-2.0-3.0); ABG HCO3 24.9 mmol/L (22.0-26.0); ABG OXYGEN SATURATION 89.4 % (95-98); ABG PCO2 (T) 40.9 mmHg (35.0-45.0); ABG PH (T) 7.404 (7.350-7.450); ABG PO2 (T) 58.6 mmHg (83-108); FMetHb 0.1 % (0.3-1.12); FO2Hb 89.3 % (94-100); MINUTE VOLUME 10 L/min; PATIENT TEMPERATURE 37.4; PEEP 5 cm H2O; RESPIRATORY RATE 16 b/min; RESPIRATORY RATE (OBSERVED) 16 b/min; TIDAL VOLUME 450 mL
[2019-03-06] MEDS: dexmedetomidin/NS 400mcg/100ml 100 ML IV SCH ×4 (04:23→18:09)
[2019-03-06] MEDS: normal saline 1000ml 1,000 ML IV SCH ×2 (05:07→18:27)
--- NOTE | 2019-03-06 06:08 | NUR ---
Patient in room CICU 2008. I have received report from Maria Alejandra ROACH and had the opportunity to ask questions and assume patient care.
[2019-03-06] MEDS ORDERED: heparin 1,000unit/ml 10ml vial 10 ML ONE (06:42)
[2019-03-06] MEDS ORDERED: verapamil 2.5 mg/ml inj IV ONE (06:42)
[2019-03-06] MEDS ORDERED: iohexol 350 MG/1 ML 200ml bottle ONE (06:42)
[2019-03-06] MEDS ORDERED: nitroGLYCERIN-Tridil 50MG/D5W 250 ML IV ONE (06:42)
[2019-03-06] MEDS ORDERED: iohexol 350 MG/ML 50ML vial IV ONE (06:42)
[2019-03-06] MEDS ORDERED: LIDOcaine 1% (10mg/ml)w/preservative injection 20ml MDV ONE (06:42)
[2019-03-06] MEDS: ipratropium/albuterol 3ml nebule IH SCH ×4 (07:00→18:53)
--- NOTE | 2019-03-06 07:00 | NUR ---
Patient down to Bilingual Receptionist. Called Ayah, patients , and she verbalized consent and stated that Dr. Rojas had spoken to her at length yesterday about the procedure and what to expect as well as possible complications. Patient was sent down on vent with fentanyl and precedex running; BP stable, NSR, ventilated at Fi02 of 40%.
[2019-03-06] MEDS: budesonide 0.5mg/2ml UD nebule IH SCH ×2 (08:08→18:53)
[2019-03-06] MEDS ORDERED: heparin 25,000 UNIT/250ml bag 250 ML IV ONE (08:17)
[2019-03-06] MEDS ORDERED: iohexol 350MG/ML 100ml bottle IV ONE (08:33)
[2019-03-06] MEDS ORDERED: clopidogrel 300mg tablet ONE (09:02)
[2019-03-06 09:10] LABS: ISTAT Hct MIX 34 %PCV (42-52); ISTAT O2 SATURATION MIX VENOUS 53 % (60-80); ISTAT SOURCE MIX
[2019-03-06 09:10] LABS: ISTAT HGB ART 12.2 g/dl (14.0-18.0); ISTAT Hct ART 36 %PCV (42-52); ISTAT O2 SATURATION ARTERIAL 89 % (95-98); ISTAT SOURCE ART
[2019-03-06] MEDS: ESOMEPRAZOLE 40 MG VIAL IV SCH (09:14)
[2019-03-06] MEDS: MVI, adult No.4 with vit. K 10 ML in dextrose 5% water 500ml 500 ML IV SCH ×2 (09:14)
[2019-03-06] MEDS: mineral oil/petrolatum ophthal oint EACHEYE SCH ×3 (09:14→19:59)
[2019-03-06] MEDS: polyethylene glycol 3350 17gm powd pack OGT SCH (09:14)
[2019-03-06] MEDS: atorvastatin 20mg tablet OGT SCH (09:15)
[2019-03-06] MEDS: lactobacillus rhamnosus 10,000 MMU CELLS/CAPSULE OGT SCH ×2 (09:15→19:58)
[2019-03-06] MEDS: oxybutynin 5mg tablet PO SCH (09:15)
[2019-03-06] MEDS: folic acid 1mg tablet OGT SCH (09:15)
[2019-03-06] MEDS: duloxetine 20mg capsule.DR PO SCH (09:15)
--- NOTE | 2019-03-06 09:15 | NUR ---
Patient returned from label coder with a stented RCA after radial access. Pressure dressing on right radial.
[2019-03-06] MEDS: thiamine 100mg tablet OGT SCH (09:16)
[2019-03-06] MEDS ORDERED: clopidogrel 300mg tablet PO ONE ×2 (09:25→09:30)
[2019-03-06] MEDS ORDERED: aspirin 81mg tab.chew PO ONE (09:30)
[2019-03-06] MEDS ORDERED: cyclobenzaprine 10mg tablet PO PRN (09:30)
--- NOTE | 2019-03-06 11:00 | NUR ---
Heparin D/C'd per Dr. Rojas's order
[2019-03-06] MEDS ORDERED: cyclobenzaprine 10mg tablet OGT PRN (11:24)
--- NOTE | 2019-03-06 11:31 | NUR ---
PRESSURE ULCER EDUCATION: DEFINITION: A pressure ulcer is an area of skin that breaks down when you stay in one position too long. The constant pressure against the skin reduces the blood flow to that area and the affected tissue dies. CAUSES: "Being bedridden or in a wheelchair "Fragile skin "Having a chronic condition, such as diabetes or vascular disease "Inability to move certain parts of your body without assistance "Older age "Incontinence of urine or stool SYMPTOMS: "A reddened area that DOES NOT turn white when pressed on - this can be the beginning of a pressure ulcer "A blister, deep sore or a crater - these can be advanced pressure ulcers FIRST AID: "Relieve the pressure on this area "Keep the area clean and dry "Call your primary doctor if you see any of the above symptoms "DO NOT massage the area "DO NOT use a donut shaped or ring shaped pillow- these actually interfere with the blood flow and cause complications PREVENTION: "Check for pressure ulcers everyday "Change position at least every two hours to relieve pressure "Use items that help relieve pressure- pillows, sheepskin, foam padding, and powders. "Keep skin clean and dry "Eat healthy well balanced meals "Exercise daily IF YOU SEE ANY OF THESE SYMPTOMS WHILE IN THE HOSPITAL - TELL YOUR NURSE IMMEDIATELY. IF YOU SEE ANY OF THESE SYMPTOMS WHILE AT HOME OR HAVE ANY QUESTIONS OR CONCERNS ABOUT PRESSURE ULCERS - CALL YOUR PRIMARY DOCTOR IMMEDIATELY. Addendum: 03/06/19 at 1132 by Lara Hazel RN Amended: Links added.
--- NOTE | 2019-03-06 18:15 | NUR ---
Problems reprioritized. Patient report given, questions answered & plan of care reviewed with Valerie ROACH.
--- NOTE | 2019-03-06 18:30 | NUR ---
Patient in room CICU 2008. I have received report and had the opportunity to ask questions and assume patient care.
--- NOTE | 2019-03-06 19:00 | NUR ---
plan is to extubate pt in the am and to keep pt on low sedation however, pt does not respond to commands and is continually biting tube which is causing him to become asynchronous with the vent. sedation increased
[2019-03-06] MEDS: oxybutynin 5mg per 5ml oral solution OGT SCH (19:58)
--- NOTE | 2019-03-06 22:00 | NUR ---
pt is resting. vital signs stable. no s/s of distress or change in condition noted. will continue to monitor.
[2019-03-07] VITALS (24 sets, daily range): BP systolic 94–207; BP diastolic 48–104
--- NOTE | 2019-03-07 | NUR ---
pt is drowsy but awakens when suctioned or repositioned. fentanyl drip is off. vital signs stable. will continue to monitor.
--- NOTE | 2019-03-07 | NUR ---
pt is intubated and sedated. vital signs stable. no s/s of distress or change in condition noted. will continue to monitor.
[2019-03-07] MEDS: chlordiazePOXIDE 25mg capsule OGT SCH ×4 (00:51→23:28)
[2019-03-07] MEDS: piperacillin/tazo 3.375gm/50ml 50 ML IV SCH ×2 (00:51→09:22)
[2019-03-07] MEDS: mineral oil/petrolatum ophthal oint EACHEYE SCH ×4 (02:02→19:48)
[2019-03-07] MEDS: dexmedetomidin/NS 400mcg/100ml 100 ML IV SCH ×5 (02:03→21:12)
[2019-03-07 02:50] LABS: BASOPHILS % (AUTO) 0.4 % (0-1); EOSINOPHILS # (AUTO) 0.1 X10'3 (0-0.9); EOSINOPHILS % (AUTO) 1.9 % (0-6); HEMATOCRIT 35.9 % (42.0-52.0); HEMOGLOBIN 12.1 g/dl (14.0-17.9); LYMPHOCYTES % (AUTO) 15.2 % (21-51); MEAN CORPUSCULAR HEMOGLOBIN 31.5 PG (27.0-31.0); MEAN CORPUSCULAR HGB CONC 33.7 g/dL (33.0-36.5); MEAN CORPUSCULAR VOLUME 93.2 FL (78-98); MEAN PLATELET VOLUME 8.2 FL (7.4-10.4); MONOCYTES # (AUTO) 0.8 X10'3 (0-0.9); MONOCYTES % (AUTO) 12.4 % (2-12); NEUTROPHILS # (AUTO) 4.6 X10'3 (1.8-7.7); NEUTROPHILS % (AUTO) 70.1 % (42-75); PLATELET COUNT 226 X10'3 (140-440); RED BLOOD COUNT 3.85 X10'6 (4.70-6.10); RED CELL DISTRIBUTION WIDTH 14.8 % (11.5-14.5); WHITE BLOOD COUNT 6.5 X10'3 (4.5-11.0)
[2019-03-07 03:05] LABS: ALANINE AMINOTRANSFERASE 59 U/L (12-78); ALBUMIN 1.8 G/DL (3.4-5.0); ALBUMIN/GLOBULIN RATIO 0.5 (1.1-1.5); ALKALINE PHOSPHATASE 149 IU/L (46-116); ANION GAP 8 (8-16); ASPARTATE AMINO TRANSFERASE 27 U/L (10-37); BILIRUBIN,TOTAL 0.6 MG/DL (0.1-1.0); BLOOD UREA NITROGEN 14 MG/DL (7-18); BUN/CREATININE RATIO 15.9 (5.4-32.0); CALCIUM 8.1 MG/DL (8.5-10.1); CHLORIDE 109 MMOL/L (99-107); CREATININE 0.88 MG/DL (0.60-1.10); GLUCOSE 140 MG/DL (70-104); MAGNESIUM 1.9 MG/DL (1.5-2.4); POTASSIUM 3.7 MMOL/L (3.5-5.1); SODIUM 142 MMOL/L (135-145); TOTAL CARBON DIOXIDE 25.3 MMOL/L (24-32); TOTAL PROTEIN 5.7 G/DL (6.4-8.2); eGFR 84 ML/MIN
[2019-03-07 03:45] LABS: ABG BASE EXCESS -0.5 mmol/L (-2.0-3.0); ABG HCO3 22.8 mmol/L (22.0-26.0); ABG OXYGEN SATURATION 92.8 % (95-98); ABG PCO2 (T) 33.7 mmHg (35.0-45.0); ABG PH (T) 7.448 (7.350-7.450); FCOHb 0.3 % (0.5-1.5); FMetHb 0.1 % (0.3-1.12); FO2Hb 92.4 % (94-100); MINUTE VOLUME 13 L/min; PATIENT TEMPERATURE 37.3; PEEP 5 cm H2O; RESPIRATORY RATE 16 b/min; RESPIRATORY RATE (OBSERVED) 17 b/min; TIDAL VOLUME 450 mL
[2019-03-07 03:56] LABS: BANDS% (MANUAL) 2 % (0-10); EOSINOPHILS % (MANUAL) 1 % (0-6); LYMPHOCYTES % (MANUAL) 12 % (21-51); MONOCYTES % (MANUAL) 13 % (2-12); NEUTROPHILS % (MANUAL) 68 % (42-75); PLATELET ESTIMATE NORMAL; REACTIVE LYMPHOCYTES % 5 % (0-0); TOTAL CELLS COUNTED 100
--- NOTE | 2019-03-07 04:33 | NUR ---
pt is resting. vital signs stable. no s/s of distress or change in condition noted. will continue to monitor.
--- NOTE | 2019-03-07 06:24 | NUR ---
Patient in room CICU 2008. I have received report from Lara ROACH and had the opportunity to ask questions and assume patient care.
--- NOTE | 2019-03-07 06:24 | NUR ---
Patient in room CICU 2009. I have received report from Lara and had the opportunity to ask questions and assume patient care. Assumed care with Cait.
[2019-03-07] MEDS: ipratropium/albuterol 3ml nebule IH SCH ×4 (07:10→19:35)
[2019-03-07] MEDS: budesonide 0.5mg/2ml UD nebule IH SCH ×2 (07:11→19:35)
[2019-03-07] MEDS: LORazepam 2 mg/ml vial IV PRN (07:33)
[2019-03-07] MEDS: normal saline 1000ml 1,000 ML IV SCH ×2 (07:47→21:11)
[2019-03-07] MEDS ORDERED: FENTANYL-0.9 % NACL/PF 100 ML IV PRN (09:20)
[2019-03-07] MEDS ORDERED: midazolam 100mg in NS 100ml 100 ML IV PRN (09:20)
[2019-03-07] MEDS ORDERED: fentaNYL/PF 50MCG/1 ML 2ML syringe IV PRN (09:20)
[2019-03-07] MEDS ORDERED: midazolam 2 mg/2 ml injection IV ONE (09:20)
[2019-03-07] MEDS: MVI, adult No.4 with vit. K 10 ML in dextrose 5% water 500ml 500 ML IV SCH ×2 (09:22)
[2019-03-07] MEDS: metoprolol tartrate 25mg tablet OGT SCH ×2 (09:25→19:33)
[2019-03-07] MEDS: thiamine 100mg tablet OGT SCH (09:25)
[2019-03-07] MEDS: lactobacillus rhamnosus 10,000 MMU CELLS/CAPSULE OGT SCH ×2 (09:26→19:33)
[2019-03-07] MEDS: duloxetine 20mg capsule.DR PO SCH (09:26)
[2019-03-07] MEDS: polyethylene glycol 3350 17gm powd pack OGT SCH (09:27)
[2019-03-07] MEDS: clopidogrel 75mg tablet OGT SCH (09:27)
[2019-03-07] MEDS: folic acid 1mg tablet OGT SCH (09:27)
[2019-03-07] MEDS: atorvastatin 20mg tablet OGT SCH (09:27)
[2019-03-07] MEDS: aspirin 325mg tablet OGT SCH (09:27)
[2019-03-07] MEDS: enoxaparin 40mg/0.4ml syringe SQ SCH (09:28)
[2019-03-07] MEDS: oxybutynin 5mg per 5ml oral solution OGT SCH ×2 (09:28→19:33)
[2019-03-07] MEDS: ESOMEPRAZOLE 40 MG VIAL IV SCH (09:29)
[2019-03-07] MEDS: FENTANYL-0.9 % NACL/PF 100 ML IV PRN (10:40)
[2019-03-07] MEDS ORDERED: ipratropium/albuterol 3ml nebule NEB SCH (11:00)
--- NOTE | 2019-03-07 13:34 | NUR ---
0700- Patient highly agitated O2 sat down to 84%, patient bagged by RT, increased FIO2 to 50%. increased precedex and resumed fentanyl. 0900- MD notified of failed sedation vacation, MD wants versed resumed. MD to place order. 1000 Rounds completed. at bedside. Spouse wanting to know patient "odds", MD states 30 to 40% chance of survival. Nursing explained again patient coming from a place of unhealthy and the patho behind his illness. Nutrition consult to eval patient caloric needs, will reevaluated relistor at a later date. 1340- RT decreased FIO2 to 35% as per order. TF started at 20cc hour.
[2019-03-07] MEDS ORDERED: CefTRIAXone/D5W-Rocephin 1gm 50 ML IV SCH (14:30)
[2019-03-07] MEDS: CefTRIAXone 2gm/D5W 50ml 50 ML IV SCH (14:55)
[2019-03-07] MEDS ORDERED: CefTRIAXone/D5W-Rocephin 1gm 50 ML IV ONE (15:10)
--- NOTE | 2019-03-07 16:03 | NUR ---
Tube feeding consult received, patient remains intubated and sedated. Will start TF today per MD. Recommendations discussed with bedside RN. Rec: 1. Continuous tube feeding per OG tube using Vital High Protein at 100ml/hr goal. To provide 2400ml fluid, 2400kcals, 2016ml free water, and 210g protein. Initiate at 20ml/hr and advance 20ml Q8 to goal as tolerated. 2. Water flush 200ml Q4 3. prealbumin Q /, daily wts 4. routine bowel care 5. when extubated; advance diet per MD to carb controlled/heart healthy Addendum: 03/07/19 at [address] Amended: Links added.
--- NOTE | 2019-03-07 18:19 | NUR ---
Problems reprioritized. Patient report given, questions answered & plan of care reviewed with Lara.
--- NOTE | 2019-03-07 18:20 | NUR ---
Patient in room CICU 2008. I have received report and had the opportunity to ask questions and assume patient care.
--- NOTE | 2019-03-07 18:20 | NUR ---
Problems reprioritized. Patient report given, questions answered & plan of care reviewed with Lara ROACH.
--- NOTE | 2019-03-07 20:00 | NUR ---
spoke with md kuhn. explained that pt is adamant about remaining full code. stated per the family meeting with the pt medical POA and himself, she will remain DNR. Pt has hx of dementia and confusion. pt refuses to wear the DNR band at this time. Addendum: 03/07/19 at 2003 by Lara Velásquez RN error -wrong pt
--- NOTE | 2019-03-07 20:03 | NUR ---
error wrong patient
--- NOTE | 2019-03-07 20:30 | NUR ---
pt is intubated and sedated. vital signs stable. no s/s of distress or change in condition noted. will continue to monitor.
[2019-03-08] VITALS (27 sets, daily range): BP systolic 115–166; BP diastolic 52–88
--- NOTE | 2019-03-08 | NUR ---
pt is intubated and sedated. vital signs stable. no s/s of distress or change in condition noted. will continue to monitor.
[2019-03-08] MEDS: mineral oil/petrolatum ophthal oint EACHEYE SCH ×4 (02:38→20:38)
[2019-03-08] MEDS: dexmedetomidin/NS 400mcg/100ml 100 ML IV SCH ×5 (02:43→22:50)
--- NOTE | 2019-03-08 03:19 | NUR ---
pt is intubated and sedated. vital signs stable. no s/s of distress or change in condition noted. will continue to monitor.
[2019-03-08 03:34] LABS: BASOPHILS % (AUTO) 0.4 % (0-1); EOSINOPHILS # (AUTO) 0.1 X10'3 (0-0.9); EOSINOPHILS % (AUTO) 2.1 % (0-6); HEMATOCRIT 34.5 % (42.0-52.0); HEMOGLOBIN 11.7 g/dl (14.0-17.9); LYMPHOCYTES # (AUTO) 1.1 X10'3 (1.1-4.8); LYMPHOCYTES % (AUTO) 16.7 % (21-51); MEAN CORPUSCULAR HEMOGLOBIN 31.2 PG (27.0-31.0); MEAN CORPUSCULAR HGB CONC 33.9 g/dL (33.0-36.5); MEAN PLATELET VOLUME 7.8 FL (7.4-10.4); MONOCYTES # (AUTO) 0.6 X10'3 (0-0.9); MONOCYTES % (AUTO) 9.1 % (2-12); NEUTROPHILS # (AUTO) 4.7 X10'3 (1.8-7.7); NEUTROPHILS % (AUTO) 71.7 % (42-75); PLATELET COUNT 256 X10'3 (140-440); RED BLOOD COUNT 3.74 X10'6 (4.70-6.10); WHITE BLOOD COUNT 6.6 X10'3 (4.5-11.0)
[2019-03-08 03:44] LABS: ALBUMIN 1.7 G/DL (3.4-5.0); ANION GAP 7 (8-16); BLOOD UREA NITROGEN 15 MG/DL (7-18); BUN/CREATININE RATIO 17.2 (5.4-32.0); CALCIUM 8.2 MG/DL (8.5-10.1); CHLORIDE 109 MMOL/L (99-107); CREATININE 0.87 MG/DL (0.60-1.10); GLUCOSE 146 MG/DL (70-104); MAGNESIUM 2.1 MG/DL (1.5-2.4); POTASSIUM 3.6 MMOL/L (3.5-5.1); PREALBUMIN 10.1 MG/DL (19-36); SODIUM 141 MMOL/L (135-145); TOTAL CARBON DIOXIDE 24.8 MMOL/L (24-32); eGFR 85 ML/MIN
[2019-03-08 04:17] LABS: TOTAL CELLS COUNTED 100
[2019-03-08 04:18] LABS: PLATELET ESTIMATE NORMAL
[2019-03-08 04:51] LABS: ABG BASE EXCESS -0.2 mmol/L (-2.0-3.0); ABG HCO3 23.6 mmol/L (22.0-26.0); ABG OXYGEN SATURATION 90.1 % (95-98); ABG PCO2 (T) 35.7 mmHg (35.0-45.0); ABG PH (T) 7.439 (7.350-7.450); ABG PO2 (T) 55.8 mmHg (83-108); ALLEN'S TEST Positive; FCOHb 0.5 % (0.5-1.5); FMetHb 0.1 % (0.3-1.12); FO2Hb 89.6 % (94-100); MINUTE VOLUME 12 L/min; PATIENT TEMPERATURE 37.1; PEEP 5 cm H2O; RESPIRATORY RATE 20 b/min; RESPIRATORY RATE (OBSERVED) 23 b/min; TIDAL VOLUME 400 mL; TOTAL HEMOGLOBIN 12.5 G/dl (14.0-17.9)
[2019-03-08] MEDS: FENTANYL-0.9 % NACL/PF 100 ML IV PRN (08:06)
[2019-03-08] MEDS: budesonide 0.5mg/2ml UD nebule IH SCH ×2 (08:16→19:05)
[2019-03-08] MEDS: ipratropium/albuterol 3ml nebule IH SCH ×4 (08:16→18:57)
[2019-03-08] MEDS: oxybutynin 5mg per 5ml oral solution OGT SCH ×2 (08:25→20:37)
[2019-03-08] MEDS: folic acid 1mg tablet OGT SCH (08:26)
[2019-03-08] MEDS: clopidogrel 75mg tablet OGT SCH (08:26)
[2019-03-08] MEDS: atorvastatin 20mg tablet OGT SCH (08:26)
[2019-03-08] MEDS: chlordiazePOXIDE 25mg capsule OGT SCH ×2 (08:26→16:34)
[2019-03-08] MEDS: metoprolol tartrate 25mg tablet OGT SCH ×2 (08:26→20:38)
[2019-03-08] MEDS: aspirin 325mg tablet OGT SCH (08:26)
[2019-03-08] MEDS: duloxetine 20mg capsule.DR PO SCH (08:27)
[2019-03-08] MEDS: thiamine 100mg tablet OGT SCH (08:27)
[2019-03-08] MEDS: polyethylene glycol 3350 17gm powd pack OGT SCH (08:27)
[2019-03-08] MEDS: lactobacillus rhamnosus 10,000 MMU CELLS/CAPSULE OGT SCH ×2 (08:27→20:37)
[2019-03-08] MEDS: CefTRIAXone 2gm/D5W 50ml 50 ML IV SCH (08:28)
[2019-03-08] MEDS: ESOMEPRAZOLE 40 MG VIAL IV SCH (08:28)
[2019-03-08] MEDS: enoxaparin 40mg/0.4ml syringe SQ SCH (08:29)
--- NOTE | 2019-03-08 08:49 | NUR ---
tube feed increased to 60 per orders
[2019-03-08] MEDS: MVI, adult No.4 with vit. K 10 ML in dextrose 5% water 500ml 500 ML IV SCH ×2 (09:19)
[2019-03-08] MEDS: normal saline 1000ml 1,000 ML IV SCH (11:53)
--- NOTE | 2019-03-08 13:09 | NUR ---
GRV 400. returned 300 and did not give 200 of free water. Tube feed resumed at 60 and will recheck in 1hr Addendum: 03/08/19 at 1422 by Milton Doyle RN GRV less then 300; returned and resumed TF
[2019-03-08] MEDS ORDERED: furosemide 40mg/4ml inj IV ONE (13:45)
[2019-03-08] MEDS ORDERED: FENTANYL-0.9 % NACL/PF 100 ML IV PRN (13:45)
[2019-03-08] MEDS ORDERED: midazolam 100mg in NS 100ml 100 ML IV PRN (13:46)
[2019-03-08] MEDS ORDERED: mineral oil/petrolatum ophthal oint EACHEYE SCH (14:00)
--- NOTE | 2019-03-08 15:21 | NUR ---
Reassessment: patient is intubated and sedated. Per RN at rounds tube feeding is at 60 ml/hr, GRV are WNL. Per MD note not ready for extubation. Presents with UTI, sepsis, etoh w/d and DT's per MD. Hx 3 large vodka drinks daily per MD w/ med non-compliance. Receiving Banana bag. LBM 03/05, receiving bowel care. Will continue to follow. Rec: 1. Continuous tube feeding per OG tube using Vital High Protein at 100ml/hr goal. To provide 2400ml fluid, 2400kcals, 2016ml free water, and 210g protein. 2. Water flush 200ml Q4 3. prealbumin Q /, daily wts 4. routine bowel care, may benefit from Gut motility stimulator if continues with constipation possibly d/t fentanyl, d/w RN 5. when extubated; advance diet as medically indicated to carb controlled/heart healthy Addendum: 03/08/19 at [address] Amended: Links added.
--- NOTE | 2019-03-08 16:15 | NUR ---
Notified MD of high GRV and dieticians recommendation for reglan. Md aware patient has not had a BM. No new orders
[2019-03-08] MEDS: ipratropium/albuterol 3ml nebule NEB PRN ×2 (17:00→23:05)
--- NOTE | 2019-03-08 17:44 | NUR ---
tube feed increased to 80 per orders
[2019-03-09] VITALS (34 sets, daily range): BP systolic 110–183; BP diastolic 49–85
[2019-03-09] MEDS: chlordiazePOXIDE 25mg capsule OGT SCH ×2 (00:12→08:26)
[2019-03-09] MEDS: mineral oil/petrolatum ophthal oint EACHEYE SCH ×4 (02:15→20:33)
[2019-03-09] MEDS: ipratropium/albuterol 3ml nebule NEB PRN (02:50)
[2019-03-09 03:06] LABS: ABG BASE EXCESS 2.5 mmol/L (-2.0-3.0); ABG HCO3 24.2 mmol/L (22.0-26.0); ABG OXYGEN SATURATION 90.4 % (95-98); ABG PCO2 (T) 29.4 mmHg (35.0-45.0); ABG PH (T) 7.534 (7.350-7.450); ABG PO2 (T) 56.4 mmHg (83-108); ALLEN'S TEST Positive; FCOHb 0.3 % (0.5-1.5); FMetHb 0.1 % (0.3-1.12); MINUTE VOLUME 12 L/min; PATIENT TEMPERATURE 37.3; PEEP 5 cm H2O; RESPIRATORY RATE (OBSERVED) 16 b/min
[2019-03-09 03:11] LABS: BASOPHILS % (AUTO) 0.4 % (0-1); EOSINOPHILS # (AUTO) 0.1 X10'3 (0-0.9); HEMATOCRIT 36.7 % (42.0-52.0); HEMOGLOBIN 12.4 g/dl (14.0-17.9); LYMPHOCYTES # (AUTO) 1.1 X10'3 (1.1-4.8); LYMPHOCYTES % (AUTO) 13.9 % (21-51); MEAN CORPUSCULAR HEMOGLOBIN 30.9 PG (27.0-31.0); MEAN CORPUSCULAR HGB CONC 33.8 g/dL (33.0-36.5); MEAN CORPUSCULAR VOLUME 91.4 FL (78-98); MEAN PLATELET VOLUME 7.6 FL (7.4-10.4); MONOCYTES # (AUTO) 0.5 X10'3 (0-0.9); MONOCYTES % (AUTO) 7.1 % (2-12); NEUTROPHILS # (AUTO) 5.9 X10'3 (1.8-7.7); NEUTROPHILS % (AUTO) 77.6 % (42-75); PLATELET COUNT 302 X10'3 (140-440); RED BLOOD COUNT 4.01 X10'6 (4.70-6.10); RED CELL DISTRIBUTION WIDTH 14.8 % (11.5-14.5); WHITE BLOOD COUNT 7.7 X10'3 (4.5-11.0)
[2019-03-09 03:14] LABS: ALBUMIN 1.9 G/DL (3.4-5.0); ANION GAP 9 (8-16); BLOOD UREA NITROGEN 17 MG/DL (7-18); CALCIUM 8.5 MG/DL (8.5-10.1); CHLORIDE 107 MMOL/L (99-107); CREATININE 0.85 MG/DL (0.60-1.10); GLUCOSE 168 MG/DL (70-104); POTASSIUM 3.3 MMOL/L (3.5-5.1); SODIUM 142 MMOL/L (135-145); TOTAL CARBON DIOXIDE 25.7 MMOL/L (24-32); eGFR 87 ML/MIN
[2019-03-09] MEDS: dexmedetomidin/NS 400mcg/100ml 100 ML IV SCH ×3 (03:47→21:09)
--- NOTE | 2019-03-09 04:22 | NUR ---
during full bed and bath, patient appears to be most awake he has been the whole shift. nods weakly to yes/no questions. constantly taps right foot follows commands weakly when i ask him to lift right leg off bed, he barely can but with LLE, it appears to be perhaps weaker. same with rue and lue- Patient seems to more easily move RUE>LUE . pupils are unchanged from beginning of shift. slightly irregular and 4 mm and reactive. versed and fentanyl have remained off the entire shift. precedex gtt at 0.8 since beginning of shift (18:00). when I spoke to the son Navjot on the phone near 2200 last night, i asked him to clarify the baseline status as I thought the weakness from L vs R side was perhaps baseline from a previous stroke. However, Navjot told me the only odd trait he could think of was frequent "shaking" and tremors. patient is not fully awake currently and isnt always consistent with commands. i will pass this information to next shift to monitor if weakness is in fact present when patient fully awakes. no c/o pain or s/sx pain. no distress, reoriented, support given.
[2019-03-09] MEDS: ipratropium/albuterol 3ml nebule IH SCH ×2 (06:40→10:39)
[2019-03-09] MEDS: budesonide 0.5mg/2ml UD nebule IH SCH ×2 (06:40→19:17)
[2019-03-09] MEDS: ESOMEPRAZOLE 40 MG VIAL IV SCH (08:24)
[2019-03-09] MEDS: polyethylene glycol 3350 17gm powd pack OGT SCH (08:25)
[2019-03-09] MEDS: enoxaparin 40mg/0.4ml syringe SQ SCH (08:25)
[2019-03-09] MEDS: aspirin 325mg tablet OGT SCH (08:25)
[2019-03-09] MEDS: duloxetine 20mg capsule.DR PO SCH (08:25)
[2019-03-09] MEDS: furosemide 40mg/4ml inj IV SCH (08:25)
[2019-03-09] MEDS: thiamine 100mg tablet OGT SCH (08:25)
[2019-03-09] MEDS: folic acid 1mg tablet OGT SCH (08:26)
[2019-03-09] MEDS: oxybutynin 5mg per 5ml oral solution OGT SCH ×2 (08:26→20:33)
[2019-03-09] MEDS: metoprolol tartrate 25mg tablet OGT SCH ×2 (08:26→20:34)
[2019-03-09] MEDS: clopidogrel 75mg tablet OGT SCH (08:26)
[2019-03-09] MEDS: MULTIVIT-MIN/FERROUS GLUCONATE 9 MG/15 ML LIQUID PO SCH (08:26)
[2019-03-09] MEDS: lactobacillus rhamnosus 10,000 MMU CELLS/CAPSULE OGT SCH ×2 (08:26→20:34)
[2019-03-09] MEDS: CefTRIAXone 2gm/D5W 50ml 50 ML IV SCH (08:27)
[2019-03-09] MEDS: atorvastatin 20mg tablet OGT SCH (08:27)
[2019-03-09] MEDS ORDERED: ipratropium/albuterol 3ml nebule NEB PRN ×2 (12:15→14:05)
[2019-03-09] MEDS ORDERED: racepinephrine 11.25mg/0.5ml nebule NEB PRN (12:15)
--- NOTE | 2019-03-09 13:00 | NUR ---
Patient extubated per MD orders. Patient did no tolerate well; RR in the 30's, sats 88 on 4L and was working extremely hard to breath.
[2019-03-09] MEDS ORDERED: midazolam 2 mg/2 ml injection ONE ×2 (13:44→13:48)
--- NOTE | 2019-03-09 13:45 | NUR ---
Patient re-intubated per MD orders. 8MG versed given in two seperate boluses per MD order
[2019-03-09] MEDS: midazolam 100mg in NS 100ml 100 ML IV PRN (13:56)
[2019-03-09] MEDS ORDERED: etomidate 2mg/ml inj. IV ONE (14:00)
[2019-03-09] MEDS ORDERED: FENTANYL-0.9 % NACL/PF 100 ML IV PRN (14:04)
[2019-03-09] MEDS ORDERED: midazolam 100mg in NS 100ml 100 ML IV PRN (14:04)
[2019-03-09] MEDS ORDERED: fentaNYL/PF 50MCG/1 ML 2ML syringe IV PRN (14:05)
[2019-03-09] MEDS ORDERED: midazolam 2 mg/2 ml injection IV ONE (14:05)
--- NOTE | 2019-03-09 14:38 | NUR ---
notified of run of vtach. Patient stable. K 3.3 Orders to replace IV
[2019-03-09] MEDS: ipratropium/albuterol 3ml nebule NEB SCH ×3 (14:47→22:50)
[2019-03-09] MEDS: potassium Cl 20mEq/100mL bag 100 ML IV PRN ×2 (15:00→16:06)
[2019-03-09] MEDS ORDERED: ipratropium/albuterol 3ml nebule NEB SCH (15:00)
[2019-03-09 15:15] LABS: ABG BASE EXCESS 3.1 mmol/L (-2.0-3.0); ABG HCO3 26.3 mmol/L (22.0-26.0); ABG OXYGEN SATURATION 91.3 % (95-98); ABG PH (T) 7.482 (7.350-7.450); ABG PO2 (T) 59.6 mmHg (83-108); ALLEN'S TEST Positive; FCOHb 0.4 % (0.5-1.5); FMetHb 0.2 % (0.3-1.12); FO2Hb 90.8 % (94-100); MINUTE VOLUME 13 L/min; PEEP 5 cm H2O; RESPIRATORY RATE 16 b/min; TIDAL VOLUME 400 mL; TOTAL HEMOGLOBIN 16.1 G/dl (14.0-17.9)
[2019-03-09] MEDS ORDERED: chlordiazePOXIDE 25mg capsule OGT SCH (16:00)
[2019-03-09] MEDS ORDERED: dextrose ORAL solution 15 GM/59 ML bottle PO PRN (19:00)
[2019-03-09] MEDS ORDERED: glucagon, human recombinant 1mg kit SUBCUT PRN (19:00)
[2019-03-09 19:36] LABS: ANION GAP 7 (8-16); BLOOD UREA NITROGEN 20 MG/DL (7-18); CALCIUM 8.5 MG/DL (8.5-10.1); CHLORIDE 109 MMOL/L (99-107); CREATININE 0.87 MG/DL (0.60-1.10); GLUCOSE 176 MG/DL (70-104); MAGNESIUM 2.1 MG/DL (1.5-2.4); POTASSIUM 3.9 MMOL/L (3.5-5.1); SODIUM 143 MMOL/L (135-145); TOTAL CARBON DIOXIDE 27.2 MMOL/L (24-32); eGFR 85 ML/MIN
[2019-03-09] MEDS: insulin glargine (Lantus) pen - multi-dose SQ SCH (20:46)
[2019-03-09] MEDS: insulin regular, human vial - multi-dose SQ SCH (20:58)
--- NOTE | 2019-03-09 21:20 | NUR ---
patient is mildly agitated, moves x 4 - not to command. patient appears to have a mild increase in work of breathing/ "pulling hard". patient is not answering yes or no questions at this time. versed gtt is at 6 mg/hr. Trying not to overmedicate the patient and since there is some wincing with nursing care, i have given patient a norco tab per order instead of starting the fentanyl gtt. also so as not to overmedicate the patient with versed, i have restarted the precedex gtt and will decrease the versed as I can. RT suggested we could try PRVC which might be more comfortable for the patient. When I see SUPERVISOR METAL FURNITURE ASSEMBLY - Pollo, if sedation does not improve the patients status/comfort - i will ask dereck lozano if we could perhaps try PRVC. I will let the medication changes take effect and follow up accordingly
--- NOTE | 2019-03-09 22:06 | NUR ---
since vss are improved and patient appears comfortable, I called marta WRIGHT to update. orders given to change vent to PRVC. RT aware via phone call and will be in shortly to make the change on the vent
--- NOTE | 2019-03-09 23:34 | NUR ---
clarification - patient did appear comfortable/nonagitated but still appeared to be "pulling" in breaths - this is why i called marta harden to update him about patient status.
[2019-03-10] VITALS (24 sets, daily range): BP systolic 82–181; BP diastolic 45–83
[2019-03-10] MEDS: mineral oil/petrolatum ophthal oint EACHEYE SCH ×4 (02:24→20:03)
[2019-03-10] MEDS: insulin regular, human vial - multi-dose SQ SCH ×4 (02:24→19:55)
[2019-03-10] MEDS: dexmedetomidin/NS 400mcg/100ml 100 ML IV SCH ×2 (02:27→22:09)
[2019-03-10 02:39] LABS: ALBUMIN 1.9 G/DL (3.4-5.0); ANION GAP 8 (8-16); BLOOD UREA NITROGEN 22 MG/DL (7-18); BUN/CREATININE RATIO 25.6 (5.4-32.0); CALCIUM 8.4 MG/DL (8.5-10.1); CHLORIDE 111 MMOL/L (99-107); CREATININE 0.86 MG/DL (0.60-1.10); GLUCOSE 179 MG/DL (70-104); MAGNESIUM 2.2 MG/DL (1.5-2.4); SODIUM 146 MMOL/L (135-145); eGFR 86 ML/MIN
[2019-03-10 02:44] LABS: BASOPHILS % (AUTO) 0.3 % (0-1); EOSINOPHILS # (AUTO) 0.1 X10'3 (0-0.9); EOSINOPHILS % (AUTO) 1.3 % (0-6); HEMATOCRIT 36.8 % (42.0-52.0); HEMOGLOBIN 12.2 g/dl (14.0-17.9); MEAN CORPUSCULAR HEMOGLOBIN 30.8 PG (27.0-31.0); MEAN CORPUSCULAR HGB CONC 33.1 g/dL (33.0-36.5); MEAN CORPUSCULAR VOLUME 93.1 FL (78-98); MEAN PLATELET VOLUME 7.9 FL (7.4-10.4); MONOCYTES # (AUTO) 0.6 X10'3 (0-0.9); MONOCYTES % (AUTO) 7.2 % (2-12); NEUTROPHILS # (AUTO) 6.8 X10'3 (1.8-7.7); NEUTROPHILS % (AUTO) 79.2 % (42-75); PLATELET COUNT 314 X10'3 (140-440); RED BLOOD COUNT 3.95 X10'6 (4.70-6.10); RED CELL DISTRIBUTION WIDTH 14.9 % (11.5-14.5); WHITE BLOOD COUNT 8.6 X10'3 (4.5-11.0)
[2019-03-10] MEDS: ipratropium/albuterol 3ml nebule NEB SCH ×6 (03:12→22:53)
[2019-03-10 04:26] LABS: ABG BASE EXCESS 0.3 mmol/L (-2.0-3.0); ABG HCO3 23.7 mmol/L (22.0-26.0); ABG OXYGEN SATURATION 89.7 % (95-98); ABG PCO2 (T) 35.2 mmHg (35.0-45.0); ABG PH (T) 7.447 (7.350-7.450); ALLEN'S TEST Positive; FCOHb 0.3 % (0.5-1.5); FMetHb 0.1 % (0.3-1.12); FO2Hb 89.3 % (94-100); MINUTE VOLUME 12 L/min; PATIENT TEMPERATURE 37.3; PEEP 5 cm H2O; RESPIRATORY RATE 16 b/min; RESPIRATORY RATE (OBSERVED) 21 b/min; TIDAL VOLUME 400 mL; TOTAL HEMOGLOBIN 13.8 G/dl (14.0-17.9)
[2019-03-10] MEDS: midazolam 100mg in NS 100ml 100 ML IV PRN (05:18)
[2019-03-10] MEDS: budesonide 0.5mg/2ml UD nebule IH SCH ×2 (06:45→18:57)
--- NOTE | 2019-03-10 07:50 | NUR ---
Spoke with this AM. She states that if he is unable to be extubated in the future and ends up requiring a trach, she wants him to get it, even though she knows that is not what he would want. Multiple conversations over the past two days with the and the family regarding what his wishes would be; they all have said that he has stated in the past, many times, that he would not want "this", indicating to me that he would not want to be in the ICU on a ventilator. We also spoke about senior care if he is unable to come of the ventilator, and needs a trach and PEG, and she stated that he would absolutely not want that.
[2019-03-10] MEDS: polyethylene glycol 3350 17gm powd pack OGT SCH (08:00)
[2019-03-10] MEDS: pantoprazole 40 MG vial IV SCH (09:37)
[2019-03-10] MEDS: MULTIVIT-MIN/FERROUS GLUCONATE 9 MG/15 ML LIQUID PO SCH (10:02)
[2019-03-10] MEDS: furosemide 40mg/4ml inj IV SCH (10:02)
[2019-03-10] MEDS: enoxaparin 40mg/0.4ml syringe SQ SCH (10:02)
[2019-03-10] MEDS: oxybutynin 5mg per 5ml oral solution OGT SCH ×2 (10:03→19:59)
[2019-03-10] MEDS: lactobacillus rhamnosus 10,000 MMU CELLS/CAPSULE OGT SCH ×2 (10:03→19:59)
[2019-03-10] MEDS: aspirin 325mg tablet OGT SCH (10:03)
[2019-03-10] MEDS: duloxetine 20mg capsule.DR PO SCH (10:03)
[2019-03-10] MEDS: metoprolol tartrate 25mg tablet OGT SCH ×2 (10:04→19:59)
[2019-03-10] MEDS: atorvastatin 20mg tablet OGT SCH (10:04)
[2019-03-10] MEDS: folic acid 1mg tablet OGT SCH (10:04)
[2019-03-10] MEDS: thiamine 100mg tablet OGT SCH (10:04)
[2019-03-10] MEDS: clopidogrel 75mg tablet OGT SCH (10:04)
[2019-03-10] MEDS: CefTRIAXone 2gm/D5W 50ml 50 ML IV SCH (10:05)
[2019-03-10] MEDS: normal saline 1000ml 1,000 ML IV SCH (10:05)
[2019-03-10] MEDS: insulin glargine (Lantus) pen - multi-dose SQ SCH (19:56)
[2019-03-10] MEDS ORDERED: mineral oil/petrolatum ophthal oint EACHEYE SCH (20:00)
--- NOTE | 2019-03-10 23:30 | NUR ---
PATIENT IS FEBRILE 38.38.5 BLADDER TEMP, 38.7 AXILLARY. GORDON CX PER ORDER FOR SPUTUM URINE AND BLOOD CX X 2. I ROSLYN 1 SET BLOOD CX OFF THE JULIA PICC. 2ND SET - THE LAB WILL DRAW PERIPHERALLY. LAB WAS CALLED AND REQUESTED TO COME AND DRAW. THEY WILL DRAW THEM SHORTLY. LACTIC WAS SENT WELL AM LABS. TORO WRIGHT AWARE Addendum: 03/11/19 at 0458 by Karthik Rousseau RN CLARIFICATION: BLADDER TEMP 38.5, AXILLARY TEMP 38.7. Addendum: 03/11/19 at 0501 by Karthik Rousseau RN ALSO TYLENOL WAS GIVEN PT
[2019-03-11] VITALS (23 sets, daily range): BP systolic 92–132; BP diastolic 43–59
[2019-03-11 00:13] LABS: HEMOGLOBIN 12.5 g/dl (14.0-17.9)
[2019-03-11 00:15] LABS: BASOPHILS # (AUTO) 0.1 X10'3 (0-0.2); BASOPHILS % (AUTO) 0.9 % (0-1); EOSINOPHILS # (AUTO) 0.1 X10'3 (0-0.9); HEMATOCRIT 36.7 % (42.0-52.0); LYMPHOCYTES # (AUTO) 0.9 X10'3 (1.1-4.8); LYMPHOCYTES % (AUTO) 8.6 % (21-51); MEAN CORPUSCULAR HEMOGLOBIN 31.2 PG (27.0-31.0); MEAN CORPUSCULAR HGB CONC 33.9 g/dL (33.0-36.5); MEAN CORPUSCULAR VOLUME 91.8 FL (78-98); MEAN PLATELET VOLUME 7.6 FL (7.4-10.4); MONOCYTES # (AUTO) 0.8 X10'3 (0-0.9); MONOCYTES % (AUTO) 7.3 % (2-12); NEUTROPHILS # (AUTO) 8.7 X10'3 (1.8-7.7); NEUTROPHILS % (AUTO) 82.2 % (42-75); PLATELET COUNT 357 X10'3 (140-440); WHITE BLOOD COUNT 10.6 X10'3 (4.5-11.0)
[2019-03-11 00:22] LABS: ANION GAP 8 (8-16); BLOOD UREA NITROGEN 25 MG/DL (7-18); BUN/CREATININE RATIO 29.4 (5.4-32.0); CALCIUM 8.6 MG/DL (8.5-10.1); CHLORIDE 108 MMOL/L (99-107); CREATININE 0.85 MG/DL (0.60-1.10); GLUCOSE 192 MG/DL (70-104); POTASSIUM 3.9 MMOL/L (3.5-5.1); SODIUM 143 MMOL/L (135-145); TOTAL CARBON DIOXIDE 27.5 MMOL/L (24-32); eGFR 87 ML/MIN
[2019-03-11 00:38] LABS: CLARITY,URINE CLEAR (Clear); COLOR,URINE YELLOW (Yellow); GLUCOSE, URINE NEGATIVE (Neg); KETONES,URINE NEGATIVE (Neg); LEUKOCYTE ESTERASE ,URINE NEGATIVE (Neg); NITRITES, URINE NEGATIVE (Neg); OCCULT BLOOD,URINE TRACE-INTACT (Neg); PH,URINE 6.5 (4.8-8.0); PROTEIN,URINE TRACE mg/dl (Neg)
[2019-03-11 00:47] LABS: UA COLLECTION TYPE FOLEY CATH
[2019-03-11 00:50] LABS: WBC,URINE 0-4 /HPF (0-4)
[2019-03-11 00:51] LABS: BACTERIA,URINE NONE SEEN /HPF (Neg); MUCUS STRANDS FEW /LPF (Neg); SQUAMOUS EPITHELIAL CELL,UR NONE SEEN /LPF (FEW)
[2019-03-11] MEDS: ipratropium/albuterol 3ml nebule NEB SCH ×6 (02:49→22:34)
[2019-03-11] MEDS: mineral oil/petrolatum ophthal oint EACHEYE SCH ×4 (02:50→19:59)
[2019-03-11] MEDS: insulin regular, human vial - multi-dose SQ SCH ×4 (02:54→20:24)
[2019-03-11] MEDS: dexmedetomidin/NS 400mcg/100ml 100 ML IV SCH ×4 (02:57→22:24)
[2019-03-11 03:06] LABS: ABG BASE EXCESS 3.5 mmol/L (-2.0-3.0); ABG HCO3 26.8 mmol/L (22.0-26.0); ABG OXYGEN SATURATION 91.8 % (95-98); ABG PCO2 (T) 37.7 mmHg (35.0-45.0); ABG PH (T) 7.473 (7.350-7.450); ABG PO2 (T) 64.3 mmHg (83-108); ALLEN'S TEST Positive; FCOHb 0.2 % (0.5-1.5); FMetHb 0.1 % (0.3-1.12); FO2Hb 91.5 % (94-100); MINUTE VOLUME 12 L/min; PATIENT TEMPERATURE 37.8; PEEP 5 cm H2O; RESPIRATORY RATE 16 b/min; RESPIRATORY RATE (OBSERVED) 22 b/min; TIDAL VOLUME 400 mL; TOTAL HEMOGLOBIN 12.9 G/dl (14.0-17.9)
[2019-03-11] MEDS: budesonide 0.5mg/2ml UD nebule IH SCH ×2 (06:54→18:34)
[2019-03-11] MEDS: metoprolol tartrate 25mg tablet OGT SCH ×2 (08:00→20:00)
[2019-03-11] MEDS: MULTIVIT-MIN/FERROUS GLUCONATE 9 MG/15 ML LIQUID PO SCH (08:15)
[2019-03-11] MEDS: lactobacillus rhamnosus 10,000 MMU CELLS/CAPSULE OGT SCH ×2 (08:16→19:59)
[2019-03-11] MEDS: clopidogrel 75mg tablet OGT SCH (08:16)
[2019-03-11] MEDS: duloxetine 20mg capsule.DR PO SCH (08:16)
[2019-03-11] MEDS: folic acid 1mg tablet OGT SCH (08:16)
[2019-03-11] MEDS: furosemide 40mg/4ml inj IV SCH (08:16)
[2019-03-11] MEDS: oxybutynin 5mg per 5ml oral solution OGT SCH ×2 (08:16→20:00)
[2019-03-11] MEDS: aspirin 325mg tablet OGT SCH (08:16)
[2019-03-11] MEDS: atorvastatin 20mg tablet OGT SCH (08:17)
[2019-03-11] MEDS: thiamine 100mg tablet OGT SCH (08:17)
[2019-03-11] MEDS: pantoprazole 40 MG vial IV SCH (08:17)
[2019-03-11] MEDS: enoxaparin 40mg/0.4ml syringe SQ SCH (08:18)
[2019-03-11] MEDS: polyethylene glycol 3350 17gm powd pack OGT SCH (08:18)
[2019-03-11] MEDS: CefTRIAXone 2gm/D5W 50ml 50 ML IV SCH (08:18)
--- NOTE | 2019-03-11 09:39 | NUR ---
holding metoprolol SBP 101. administered lasix.
--- NOTE | 2019-03-11 11:54 | NUR ---
reassessment: Pt TF at goal and tolerating. LBM 03/10. Receiving thiamin/folic per etoh w/d protocol. Will continue to monitor. Rec: 1. Continuous tube feeding per OG tube using Vital High Protein at 100ml/hr goal. To provide 2400ml fluid, 2400kcals, 2016ml free water, and 210g protein. 2. Water flush 200ml Q4 3. prealbumin Q /, daily wts 4. routine bowel care 5. when extubated; advance diet as medically indicated to carb controlled/heart healthy Addendum: 03/11/19 at [address] Amended: Links added.
[2019-03-11] MEDS: FENTANYL-0.9 % NACL/PF 100 ML IV PRN (15:14)
[2019-03-11] MEDS: insulin glargine (Lantus) pen - multi-dose SQ SCH (20:26)
[2019-03-12] VITALS (23 sets, daily range): BP systolic 107–132; BP diastolic 47–64
[2019-03-12] MEDS: ipratropium/albuterol 3ml nebule NEB SCH ×6 (02:14→22:30)
[2019-03-12] MEDS: mineral oil/petrolatum ophthal oint EACHEYE SCH ×4 (02:16→19:52)
[2019-03-12] MEDS: dexmedetomidin/NS 400mcg/100ml 100 ML IV SCH ×3 (02:18→17:08)
[2019-03-12] MEDS: insulin regular, human vial - multi-dose SQ SCH ×4 (02:22→20:03)
[2019-03-12 02:24] LABS: BASOPHILS % (AUTO) 0.5 % (0-1); EOSINOPHILS # (AUTO) 0.2 X10'3 (0-0.9); EOSINOPHILS % (AUTO) 2.2 % (0-6); HEMATOCRIT 34.9 % (42.0-52.0); HEMOGLOBIN 11.6 g/dl (14.0-17.9); LYMPHOCYTES # (AUTO) 1.1 X10'3 (1.1-4.8); MEAN CORPUSCULAR HEMOGLOBIN 30.9 PG (27.0-31.0); MEAN CORPUSCULAR HGB CONC 33.3 g/dL (33.0-36.5); MEAN PLATELET VOLUME 7.9 FL (7.4-10.4); MONOCYTES # (AUTO) 0.7 X10'3 (0-0.9); MONOCYTES % (AUTO) 9.8 % (2-12); NEUTROPHILS # (AUTO) 5.6 X10'3 (1.8-7.7); NEUTROPHILS % (AUTO) 73.5 % (42-75); PLATELET COUNT 320 X10'3 (140-440); RED BLOOD COUNT 3.75 X10'6 (4.70-6.10); RED CELL DISTRIBUTION WIDTH 14.9 % (11.5-14.5); WHITE BLOOD COUNT 7.6 X10'3 (4.5-11.0)
[2019-03-12 02:34] LABS: ANION GAP 5 (8-16); BLOOD UREA NITROGEN 34 MG/DL (7-18); BUN/CREATININE RATIO 38.6 (5.4-32.0); CALCIUM 8.6 MG/DL (8.5-10.1); CHLORIDE 108 MMOL/L (99-107); CREATININE 0.88 MG/DL (0.60-1.10); GLUCOSE 170 MG/DL (70-104); MAGNESIUM 2.3 MG/DL (1.5-2.4); POTASSIUM 4.2 MMOL/L (3.5-5.1); SODIUM 143 MMOL/L (135-145); TOTAL CARBON DIOXIDE 29.7 MMOL/L (24-32); eGFR 84 ML/MIN
--- NOTE | 2019-03-12 03:23 | NUR ---
full bed and bath done. patient wakes and nod appropriately to y/n questions. lifts both arms right side with more strength and up over his head. able to lift left arm and place on stomach. moves right toes vigorously but does no lift off bed, only moves left toes and shakes foot back and forth a little. denies pain or distress. i have reoriented patient to time and events and he nods yes appropriately. i do not have access to vital hp at this time. i have hung th "vital af" at 100 ml/hr because i have covered the patient with insulin already. i will pass along to the next rn to please interchange it when Vital HP becomes available. patient with vss and no distress
[2019-03-12 03:46] LABS: ABG BASE EXCESS 1.9 mmol/L (-2.0-3.0); ABG HCO3 25.8 mmol/L (22.0-26.0); ABG OXYGEN SATURATION 90.5 % (95-98); ABG PCO2 (T) 38.1 mmHg (35.0-45.0); ABG PH (T) 7.449 (7.350-7.450); ABG PO2 (T) 60.2 mmHg (83-108); ALLEN'S TEST Positive; FO2Hb 90.5 % (94-100); MINUTE VOLUME 12 L/min; PATIENT TEMPERATURE 37.1; PEEP 5 cm H2O; RESPIRATORY RATE 16 b/min; RESPIRATORY RATE (OBSERVED) 20 b/min; TIDAL VOLUME 400 mL; TOTAL HEMOGLOBIN 12.5 G/dl (14.0-17.9)
[2019-03-12] MEDS: enoxaparin 40mg/0.4ml syringe SQ SCH (07:35)
[2019-03-12] MEDS: thiamine 100mg tablet OGT SCH (07:35)
[2019-03-12] MEDS: polyethylene glycol 3350 17gm powd pack OGT SCH (07:35)
[2019-03-12] MEDS: pantoprazole 40 MG vial IV SCH (07:35)
[2019-03-12] MEDS: furosemide 40mg/4ml inj IV SCH (07:35)
[2019-03-12] MEDS: oxybutynin 5mg per 5ml oral solution OGT SCH ×2 (07:35→19:56)
[2019-03-12] MEDS: atorvastatin 20mg tablet OGT SCH (07:36)
[2019-03-12] MEDS: metoprolol tartrate 25mg tablet OGT SCH ×2 (07:36→19:55)
[2019-03-12] MEDS: folic acid 1mg tablet OGT SCH (07:36)
[2019-03-12] MEDS: clopidogrel 75mg tablet OGT SCH (07:36)
[2019-03-12] MEDS: duloxetine 20mg capsule.DR PO SCH (07:36)
[2019-03-12] MEDS: MULTIVIT-MIN/FERROUS GLUCONATE 9 MG/15 ML LIQUID PO SCH (07:36)
[2019-03-12] MEDS: lactobacillus rhamnosus 10,000 MMU CELLS/CAPSULE OGT SCH ×2 (07:37→19:56)
[2019-03-12] MEDS: aspirin 325mg tablet OGT SCH (07:37)
[2019-03-12] MEDS: CefTRIAXone 2gm/D5W 50ml 50 ML IV SCH (07:37)
[2019-03-12] MEDS: normal saline 1000ml 1,000 ML IV SCH (07:54)
[2019-03-12] MEDS: budesonide 0.5mg/2ml UD nebule IH SCH ×2 (09:00→18:33)
[2019-03-12] MEDS: insulin glargine (Lantus) pen - multi-dose SQ SCH (20:01)
[2019-03-13] VITALS (24 sets, daily range): BP systolic 104–141; BP diastolic 43–61
[2019-03-13] MEDS: ipratropium/albuterol 3ml nebule NEB SCH ×6 (02:05→22:30)
[2019-03-13] MEDS: mineral oil/petrolatum ophthal oint EACHEYE SCH ×4 (02:10→19:50)
[2019-03-13] MEDS: insulin regular, human vial - multi-dose SQ SCH ×4 (02:13→22:03)
[2019-03-13] MEDS: dexmedetomidin/NS 400mcg/100ml 100 ML IV SCH ×5 (02:14→22:04)
[2019-03-13 02:34] LABS: BASOPHILS % (AUTO) 0.3 % (0-1); EOSINOPHILS # (AUTO) 0.1 X10'3 (0-0.9); EOSINOPHILS % (AUTO) 1.8 % (0-6); HEMATOCRIT 34.3 % (42.0-52.0); HEMOGLOBIN 11.5 g/dl (14.0-17.9); LYMPHOCYTES % (AUTO) 12.4 % (21-51); MEAN CORPUSCULAR HEMOGLOBIN 30.7 PG (27.0-31.0); MEAN CORPUSCULAR HGB CONC 33.4 g/dL (33.0-36.5); MEAN CORPUSCULAR VOLUME 91.8 FL (78-98); MEAN PLATELET VOLUME 7.9 FL (7.4-10.4); MONOCYTES # (AUTO) 0.9 X10'3 (0-0.9); NEUTROPHILS # (AUTO) 5.9 X10'3 (1.8-7.7); NEUTROPHILS % (AUTO) 74.5 % (42-75); PLATELET COUNT 334 X10'3 (140-440); RED BLOOD COUNT 3.74 X10'6 (4.70-6.10); RED CELL DISTRIBUTION WIDTH 14.8 % (11.5-14.5); WHITE BLOOD COUNT 7.9 X10'3 (4.5-11.0)
[2019-03-13 02:43] LABS: ALBUMIN 2.1 G/DL (3.4-5.0); ANION GAP 7 (8-16); BLOOD UREA NITROGEN 35 MG/DL (7-18); BUN/CREATININE RATIO 43.8 (5.4-32.0); CALCIUM 8.8 MG/DL (8.5-10.1); CHLORIDE 107 MMOL/L (99-107); GLUCOSE 111 MG/DL (70-104); MAGNESIUM 2.3 MG/DL (1.5-2.4); POTASSIUM 4.7 MMOL/L (3.5-5.1); SODIUM 142 MMOL/L (135-145); TOTAL CARBON DIOXIDE 28.5 MMOL/L (24-32); eGFR > 90 ML/MIN
[2019-03-13 04:16] LABS: ABG BASE EXCESS 4.5 mmol/L (-2.0-3.0); ABG HCO3 28.1 mmol/L (22.0-26.0); ABG OXYGEN SATURATION 93.5 % (95-98); ABG PCO2 (T) 38.6 mmHg (35.0-45.0); ABG PO2 (T) 68.6 mmHg (83-108); ALLEN'S TEST Positive; FCOHb 0.3 % (0.5-1.5); FMetHb 0.1 % (0.3-1.12); FO2Hb 93.1 % (94-100); MINUTE VOLUME 7 L/min; PATIENT TEMPERATURE 37.3; PEEP 5 cm H2O; RESPIRATORY RATE 0 b/min; RESPIRATORY RATE (OBSERVED) 10 b/min; TOTAL HEMOGLOBIN 12.3 G/dl (14.0-17.9)
[2019-03-13] MEDS: FENTANYL-0.9 % NACL/PF 100 ML IV PRN (04:31)
[2019-03-13] MEDS: MULTIVIT-MIN/FERROUS GLUCONATE 9 MG/15 ML LIQUID PO SCH (07:43)
[2019-03-13] MEDS: oxybutynin 5mg per 5ml oral solution OGT SCH ×2 (07:43→19:50)
[2019-03-13] MEDS: enoxaparin 40mg/0.4ml syringe SQ SCH (07:43)
[2019-03-13] MEDS: aspirin 325mg tablet OGT SCH (07:44)
[2019-03-13] MEDS: duloxetine 20mg capsule.DR PO SCH (07:44)
[2019-03-13] MEDS: metoprolol tartrate 25mg tablet OGT SCH ×2 (07:44→19:49)
[2019-03-13] MEDS: polyethylene glycol 3350 17gm powd pack OGT SCH (07:44)
[2019-03-13] MEDS: folic acid 1mg tablet OGT SCH (07:44)
[2019-03-13] MEDS: atorvastatin 20mg tablet OGT SCH (07:45)
[2019-03-13] MEDS: lactobacillus rhamnosus 10,000 MMU CELLS/CAPSULE OGT SCH ×2 (07:45→19:49)
[2019-03-13] MEDS: clopidogrel 75mg tablet OGT SCH (07:45)
[2019-03-13] MEDS: CefTRIAXone 2gm/D5W 50ml 50 ML IV SCH (07:45)
[2019-03-13] MEDS: thiamine 100mg tablet OGT SCH (07:45)
[2019-03-13] MEDS: furosemide 40mg/4ml inj IV SCH (07:45)
[2019-03-13] MEDS: pantoprazole 40 MG vial IV SCH (08:00)
[2019-03-13] MEDS: budesonide 0.5mg/2ml UD nebule IH SCH ×2 (09:00→22:30)
[2019-03-13] MEDS: insulin glargine (Lantus) pen - multi-dose SQ SCH (22:06)
[2019-03-14] VITALS (24 sets, daily range): BP systolic 107–138; BP diastolic 46–62
[2019-03-14] MEDS: ipratropium/albuterol 3ml nebule NEB SCH ×6 (02:33→23:05)
[2019-03-14] MEDS: mineral oil/petrolatum ophthal oint EACHEYE SCH ×4 (02:39→19:59)
[2019-03-14] MEDS: insulin regular, human vial - multi-dose SQ SCH ×3 (02:40→20:05)
[2019-03-14] MEDS: dexmedetomidin/NS 400mcg/100ml 100 ML IV SCH ×4 (02:43→20:15)
[2019-03-14 02:56] LABS: BASOPHILS % (AUTO) 0.4 % (0-1); EOSINOPHILS # (AUTO) 0.1 X10'3 (0-0.9); EOSINOPHILS % (AUTO) 1.6 % (0-6); HEMATOCRIT 34.4 % (42.0-52.0); HEMOGLOBIN 11.4 g/dl (14.0-17.9); LYMPHOCYTES % (AUTO) 12.3 % (21-51); MEAN CORPUSCULAR HEMOGLOBIN 30.8 PG (27.0-31.0); MEAN CORPUSCULAR HGB CONC 33.2 g/dL (33.0-36.5); MEAN CORPUSCULAR VOLUME 92.8 FL (78-98); MEAN PLATELET VOLUME 8.4 FL (7.4-10.4); MONOCYTES # (AUTO) 0.9 X10'3 (0-0.9); MONOCYTES % (AUTO) 11.1 % (2-12); NEUTROPHILS # (AUTO) 6.1 X10'3 (1.8-7.7); NEUTROPHILS % (AUTO) 74.6 % (42-75); PLATELET COUNT 342 X10'3 (140-440); RED BLOOD COUNT 3.71 X10'6 (4.70-6.10); RED CELL DISTRIBUTION WIDTH 14.9 % (11.5-14.5); WHITE BLOOD COUNT 8.2 X10'3 (4.5-11.0)
[2019-03-14 03:07] LABS: ALBUMIN 2.2 G/DL (3.4-5.0); ANION GAP 4 (8-16); BLOOD UREA NITROGEN 35 MG/DL (7-18); BUN/CREATININE RATIO 39.3 (5.4-32.0); CALCIUM 8.9 MG/DL (8.5-10.1); CHLORIDE 104 MMOL/L (99-107); CREATININE 0.89 MG/DL (0.60-1.10); GLUCOSE 141 MG/DL (70-104); MAGNESIUM 2.5 MG/DL (1.5-2.4); SODIUM 138 MMOL/L (135-145); TOTAL CARBON DIOXIDE 29.7 MMOL/L (24-32); eGFR 83 ML/MIN
[2019-03-14 03:20] LABS: ABG BASE EXCESS 4.3 mmol/L (-2.0-3.0); ABG HCO3 27.9 mmol/L (22.0-26.0); ABG OXYGEN SATURATION 93.1 % (95-98); ABG PCO2 (T) 39.4 mmHg (35.0-45.0); ABG PH (T) 7.471 (7.350-7.450); ALLEN'S TEST Positive; FCOHb 0.3 % (0.5-1.5); FMetHb 0.1 % (0.3-1.12); FO2Hb 92.7 % (94-100); MINUTE VOLUME 11 L/min; PATIENT TEMPERATURE 37.8; PEEP 5 cm H2O; RESPIRATORY RATE 0 b/min; RESPIRATORY RATE (OBSERVED) 19 b/min; TIDAL VOLUME 976 mL; TOTAL HEMOGLOBIN 12.4 G/dl (14.0-17.9)
--- NOTE | 2019-03-14 06:30 | NUR ---
Patient in room CICU 2008. I have received report from Karthik ROACH and had the opportunity to ask questions and assume patient care.
[2019-03-14] MEDS: budesonide 0.5mg/2ml UD nebule IH SCH ×2 (07:15→18:34)
[2019-03-14] MEDS: normal saline 1000ml 1,000 ML IV SCH (07:20)
[2019-03-14] MEDS: pantoprazole 40 MG vial IV SCH (08:00)
[2019-03-14] MEDS: enoxaparin 40mg/0.4ml syringe SQ SCH (08:41)
[2019-03-14] MEDS: MULTIVIT-MIN/FERROUS GLUCONATE 9 MG/15 ML LIQUID PO SCH (08:41)
[2019-03-14] MEDS: atorvastatin 20mg tablet OGT SCH (08:42)
[2019-03-14] MEDS: duloxetine 20mg capsule.DR PO SCH (08:42)
[2019-03-14] MEDS: oxybutynin 5mg per 5ml oral solution OGT SCH ×2 (08:42→19:59)
[2019-03-14] MEDS: metoprolol tartrate 25mg tablet OGT SCH ×2 (08:42→19:59)
[2019-03-14] MEDS: aspirin 325mg tablet OGT SCH (08:42)
[2019-03-14] MEDS: lactobacillus rhamnosus 10,000 MMU CELLS/CAPSULE OGT SCH ×2 (08:42→19:59)
[2019-03-14] MEDS: furosemide 40mg/4ml inj IV SCH (08:42)
[2019-03-14] MEDS: clopidogrel 75mg tablet OGT SCH (08:42)
[2019-03-14] MEDS: folic acid 1mg tablet OGT SCH (08:43)
[2019-03-14] MEDS: CefTRIAXone 2gm/D5W 50ml 50 ML IV SCH (08:43)
[2019-03-14] MEDS: polyethylene glycol 3350 17gm powd pack OGT SCH (08:43)
[2019-03-14] MEDS: thiamine 100mg tablet OGT SCH (08:43)
--- NOTE | 2019-03-14 12:02 | NUR ---
reassessment: Pt TF at goal and tolerating receiving thiamin/folic for etoh hx. Glucerna 1.2 substituted while Vital High Protein out of stock; back in stock today. LBM 03/10 receiving miralax and colace per RN; relistor to start today per MD since on opioids. Will continue to monitor. Rec: 1. Continuous tube feeding per OG tube using Vital High Protein at 100ml/hr goal. To provide 2400ml fluid, 2400kcals, 2016ml free water, and 210g protein. 2. Water flush 200ml Q4 3. prealbumin Q M/, daily wts 4. routine bowel care 5. thiamin/folic for etoh hx 6. when extubated; advance diet as medically indicated to carb controlled/heart healthy Addendum: 03/14/19 at [address] Amended: Links added.
[2019-03-14] MEDS: methylnaltrexone br 12mg/0.6ml inj***SubQ only SQ SCH (12:11)
--- NOTE | 2019-03-14 15:00 | NUR ---
Small, 2-3mm open spots noted on patient's back. No drainage or redness; KENZIE
--- NOTE | 2019-03-14 18:25 | NUR ---
Patient in room CICU 2008. I have received report and had the opportunity to ask questions and assume patient care.
--- NOTE | 2019-03-14 18:37 | NUR ---
Problems reprioritized. Patient report given, questions answered & plan of care reviewed with Valerie ROACH.
[2019-03-14] MEDS: insulin glargine (Lantus) pen - multi-dose SQ SCH (20:06)
[2019-03-15] VITALS (24 sets, daily range): BP systolic 97–155; BP diastolic 41–113
[2019-03-15] MEDS: mineral oil/petrolatum ophthal oint EACHEYE SCH ×4 (01:30→20:00)
[2019-03-15] MEDS: insulin regular, human vial - multi-dose SQ SCH ×4 (02:21→21:45)
[2019-03-15 03:12] LABS: BASOPHILS % (AUTO) 0.4 % (0-1); EOSINOPHILS # (AUTO) 0.1 X10'3 (0-0.9); EOSINOPHILS % (AUTO) 1.7 % (0-6); HEMATOCRIT 33.8 % (42.0-52.0); HEMOGLOBIN 11.3 g/dl (14.0-17.9); LYMPHOCYTES # (AUTO) 0.8 X10'3 (1.1-4.8); MEAN CORPUSCULAR HEMOGLOBIN 30.5 PG (27.0-31.0); MEAN CORPUSCULAR HGB CONC 33.3 g/dL (33.0-36.5); MEAN CORPUSCULAR VOLUME 91.6 FL (78-98); MONOCYTES # (AUTO) 0.9 X10'3 (0-0.9); MONOCYTES % (AUTO) 10.9 % (2-12); NEUTROPHILS # (AUTO) 6.5 X10'3 (1.8-7.7); PLATELET COUNT 375 X10'3 (140-440); RED BLOOD COUNT 3.68 X10'6 (4.70-6.10); RED CELL DISTRIBUTION WIDTH 14.7 % (11.5-14.5); WHITE BLOOD COUNT 8.4 X10'3 (4.5-11.0)
[2019-03-15] MEDS: ipratropium/albuterol 3ml nebule NEB SCH ×6 (03:14→23:01)
[2019-03-15 03:22] LABS: ALBUMIN 2.2 G/DL (3.4-5.0); ANION GAP 5 (8-16); BLOOD UREA NITROGEN 30 MG/DL (7-18); BUN/CREATININE RATIO 35.3 (5.4-32.0); CALCIUM 9.4 MG/DL (8.5-10.1); CHLORIDE 103 MMOL/L (99-107); CREATININE 0.85 MG/DL (0.60-1.10); GLUCOSE 153 MG/DL (70-104); MAGNESIUM 2.4 MG/DL (1.5-2.4); POTASSIUM 4.7 MMOL/L (3.5-5.1); SODIUM 137 MMOL/L (135-145); TOTAL CARBON DIOXIDE 29.1 MMOL/L (24-32); eGFR 87 ML/MIN
[2019-03-15 03:31] LABS: ABG BASE EXCESS 4.1 mmol/L (-2.0-3.0); ABG HCO3 27.9 mmol/L (22.0-26.0); ABG OXYGEN SATURATION 93.1 % (95-98); ABG PCO2 (T) 40.3 mmHg (35.0-45.0); ABG PH (T) 7.461 (7.350-7.450); ABG PO2 (T) 70.3 mmHg (83-108); ALLEN'S TEST Positive; FMetHb 0.1 % (0.3-1.12); MINUTE VOLUME 12 L/min; PATIENT TEMPERATURE 37.9; PEEP 5 cm H2O; RESPIRATORY RATE (OBSERVED) 24 b/min; TOTAL HEMOGLOBIN 12.3 G/dl (14.0-17.9)
[2019-03-15] MEDS: budesonide 0.5mg/2ml UD nebule IH SCH ×2 (06:54→19:08)
[2019-03-15] MEDS: dexmedetomidin/NS 400mcg/100ml 100 ML IV SCH ×3 (09:09→21:31)
[2019-03-15] MEDS: furosemide 40mg/4ml inj IV SCH ×2 (10:04→21:36)
[2019-03-15] MEDS: pantoprazole 40 MG vial IV SCH (10:04)
[2019-03-15] MEDS: CefTRIAXone 2gm/D5W 50ml 50 ML IV SCH (10:05)
[2019-03-15] MEDS: polyethylene glycol 3350 17gm powd pack OGT SCH (10:05)
[2019-03-15] MEDS: MULTIVIT-MIN/FERROUS GLUCONATE 9 MG/15 ML LIQUID PO SCH (10:06)
[2019-03-15] MEDS: enoxaparin 40mg/0.4ml syringe SQ SCH (10:06)
[2019-03-15] MEDS: duloxetine 20mg capsule.DR PO SCH (10:06)
[2019-03-15] MEDS: clopidogrel 75mg tablet OGT SCH (10:07)
[2019-03-15] MEDS: atorvastatin 20mg tablet OGT SCH (10:07)
[2019-03-15] MEDS: folic acid 1mg tablet OGT SCH (10:07)
[2019-03-15] MEDS: thiamine 100mg tablet OGT SCH (10:07)
[2019-03-15] MEDS: aspirin 325mg tablet OGT SCH (10:08)
[2019-03-15] MEDS: lactobacillus rhamnosus 10,000 MMU CELLS/CAPSULE OGT SCH ×2 (10:08→21:32)
[2019-03-15] MEDS: metoprolol tartrate 25mg tablet OGT SCH ×2 (10:09→21:33)
[2019-03-15] MEDS: oxybutynin 5mg per 5ml oral solution OGT SCH ×2 (10:15→21:33)
[2019-03-15 10:16] LABS: ALANINE AMINOTRANSFERASE 198 U/L (12-78); ALBUMIN/GLOBULIN RATIO 0.5 (1.1-1.5); ALKALINE PHOSPHATASE 456 IU/L (46-116); ASPARTATE AMINO TRANSFERASE 127 U/L (10-37); BILIRUBIN,TOTAL 0.2 MG/DL (0.1-1.0); PHOSPHORUS 3.7 MG/DL (2.3-4.5); TOTAL PROTEIN 6.8 G/DL (6.4-8.2)
[2019-03-15] MEDS: docusate sodium 100mg/10ml UD cup PO SCH ×2 (11:21→21:31)
[2019-03-15] MEDS: acetylcysteine 200 MG/ml 4ml vial INH SCH ×2 (11:23→19:08)
[2019-03-15] MEDS ORDERED: furosemide 20 MG/2 ML vial IV ONE (11:30)
[2019-03-15] MEDS: methylPREDNISolone sod succ 125mg/2ml vial IV SCH ×2 (14:15→21:32)
--- NOTE | 2019-03-15 18:38 | NUR ---
Problems reprioritized. Patient report given, questions answered & plan of care reviewed with Mac RN.
[2019-03-15] MEDS: insulin glargine (Lantus) pen - multi-dose SQ SCH (21:47)
[2019-03-16] VITALS (24 sets, daily range): BP systolic 91–160; BP diastolic 39–109
[2019-03-16] MEDS: dexmedetomidin/NS 400mcg/100ml 100 ML IV SCH ×2 (02:56→10:31)
[2019-03-16] MEDS: methylPREDNISolone sod succ 125mg/2ml vial IV SCH ×4 (02:56→20:57)
[2019-03-16] MEDS: mineral oil/petrolatum ophthal oint EACHEYE SCH ×2 (02:57→08:50)
[2019-03-16] MEDS: insulin regular, human vial - multi-dose SQ SCH ×2 (03:09→08:58)
[2019-03-16] MEDS: ipratropium/albuterol 3ml nebule NEB SCH ×6 (03:33→23:16)
[2019-03-16 03:57] LABS: ALANINE AMINOTRANSFERASE 175 U/L (12-78); ALBUMIN 2.2 G/DL (3.4-5.0); ALBUMIN/GLOBULIN RATIO 0.5 (1.1-1.5); ALKALINE PHOSPHATASE 406 IU/L (46-116); ANION GAP 7 (8-16); ASPARTATE AMINO TRANSFERASE 69 U/L (10-37); BASOPHILS % (AUTO) 0.1 % (0-1); BILIRUBIN,TOTAL 0.2 MG/DL (0.1-1.0); BLOOD UREA NITROGEN 44 MG/DL (7-18); BUN/CREATININE RATIO 46.8 (5.4-32.0); CALCIUM 9.1 MG/DL (8.5-10.1); CHLORIDE 104 MMOL/L (99-107); CREATININE 0.94 MG/DL (0.60-1.10); EOSINOPHILS % (AUTO) 0 % (0-6); GLUCOSE 271 MG/DL (70-104); HEMATOCRIT 33.9 % (42.0-52.0); HEMOGLOBIN 11.5 g/dl (14.0-17.9); LYMPHOCYTES # (AUTO) 0.4 X10'3 (1.1-4.8); MAGNESIUM 2.4 MG/DL (1.5-2.4); MEAN CORPUSCULAR HEMOGLOBIN 31.1 PG (27.0-31.0); MEAN CORPUSCULAR HGB CONC 33.9 g/dL (33.0-36.5); MEAN CORPUSCULAR VOLUME 91.8 FL (78-98); MEAN PLATELET VOLUME 8.8 FL (7.4-10.4); MONOCYTES # (AUTO) 0.2 X10'3 (0-0.9); MONOCYTES % (AUTO) 2.5 % (2-12); NEUTROPHILS # (AUTO) 6.8 X10'3 (1.8-7.7); NEUTROPHILS % (AUTO) 91.4 % (42-75); PHOSPHORUS 4.1 MG/DL (2.3-4.5); PLATELET COUNT 421 X10'3 (140-440); POTASSIUM 4.4 MMOL/L (3.5-5.1); RED BLOOD COUNT 3.69 X10'6 (4.70-6.10); RED CELL DISTRIBUTION WIDTH 14.3 % (11.5-14.5); SODIUM 140 MMOL/L (135-145); TOTAL CARBON DIOXIDE 28.9 MMOL/L (24-32); TOTAL PROTEIN 6.9 G/DL (6.4-8.2); WHITE BLOOD COUNT 7.5 X10'3 (4.5-11.0); eGFR 78 ML/MIN
--- NOTE | 2019-03-16 04:00 | NUR ---
RN NOte -Tube Feed Residuals Tube residuals increasing throughout shift; 225, 250, ans 275 ml.
[2019-03-16 04:16] LABS: ABG BASE EXCESS 4.8 mmol/L (-2.0-3.0); ABG HCO3 28.7 mmol/L (22.0-26.0); ABG OXYGEN SATURATION 90.5 % (95-98); ABG PCO2 (T) 38.5 mmHg (35.0-45.0); ABG PH (T) 7.488 (7.350-7.450); ABG PO2 (T) 55.1 mmHg (83-108); ALLEN'S TEST Positive; FCOHb 0.3 % (0.5-1.5); FMetHb 0.1 % (0.3-1.12); FO2Hb 90.1 % (94-100); MINUTE VOLUME 13 L/min; PATIENT TEMPERATURE 36.1; PEEP 5 cm H2O; RESPIRATORY RATE (OBSERVED) 23 b/min; TOTAL HEMOGLOBIN 12.3 G/dl (14.0-17.9)
--- NOTE | 2019-03-16 06:30 | NUR ---
Patient in room CICU 2008. I have received report from Mac RN and had the opportunity to ask questions and assume patient care. Patient laying in bed eyes closed in restraints, on vent fi02 40% peep of 5 rr 24 even and unlabored, vital signs stable, mccoy to gravity, precedex and normal saline to R Picc infusing, to signs or symptoms of distress will continue to monitor
[2019-03-16] MEDS: acetylcysteine 200 MG/ml 4ml vial INH SCH ×2 (07:19→19:18)
[2019-03-16] MEDS: normal saline 1000ml 1,000 ML IV SCH (07:54)
[2019-03-16] MEDS: polyethylene glycol 3350 17gm powd pack OGT SCH (08:46)
[2019-03-16] MEDS: methylnaltrexone br 12mg/0.6ml inj***SubQ only SQ SCH (08:46)
[2019-03-16] MEDS: CefTRIAXone 2gm/D5W 50ml 50 ML IV SCH (08:46)
[2019-03-16] MEDS: MULTIVIT-MIN/FERROUS GLUCONATE 9 MG/15 ML LIQUID PO SCH (08:46)
[2019-03-16] MEDS: docusate sodium 100mg/10ml UD cup PO SCH ×2 (08:47→20:00)
[2019-03-16] MEDS: enoxaparin 40mg/0.4ml syringe SQ SCH (08:47)
[2019-03-16] MEDS: pantoprazole 40 MG vial IV SCH (08:48)
[2019-03-16] MEDS: oxybutynin 5mg per 5ml oral solution OGT SCH ×2 (08:48→20:00)
[2019-03-16] MEDS: furosemide 40mg/4ml inj IV SCH ×2 (08:48→20:57)
[2019-03-16] MEDS: metoprolol tartrate 25mg tablet OGT SCH ×2 (08:49→20:58)
[2019-03-16] MEDS: clopidogrel 75mg tablet OGT SCH (08:49)
[2019-03-16] MEDS: duloxetine 20mg capsule.DR PO SCH (08:49)
[2019-03-16] MEDS: atorvastatin 20mg tablet OGT SCH (08:50)
[2019-03-16] MEDS: thiamine 100mg tablet OGT SCH (08:50)
[2019-03-16] MEDS: lactobacillus rhamnosus 10,000 MMU CELLS/CAPSULE OGT SCH ×2 (08:50→20:00)
[2019-03-16] MEDS: aspirin 325mg tablet OGT SCH (08:50)
[2019-03-16] MEDS: folic acid 1mg tablet OGT SCH (08:50)
[2019-03-16] MEDS: budesonide 0.5mg/2ml UD nebule IH SCH ×2 (10:53→19:18)
--- NOTE | 2019-03-16 11:22 | NUR ---
Patient extubated, vital signs stable, sating 95% on 4l NC, patient using flutter valve with encouragement, patient still pretty weak physically will continue to monitor
[2019-03-16] MEDS ORDERED: lactulose 20gm/30ml cup PO PRN (14:00)
[2019-03-16] MEDS ORDERED: insulin Lispro (HumaLOG) vial - multi-dose SQ SCH (14:50)
--- NOTE | 2019-03-16 18:23 | NUR ---
Problems reprioritized. Patient report given, questions answered & plan of care reviewed with Mac RN.
[2019-03-16] MEDS: insulin glargine (Lantus) pen - multi-dose SQ SCH (21:59)
[2019-03-17] VITALS (24 sets, daily range): BP systolic 126–161; BP diastolic 54–77
[2019-03-17] MEDS: methylPREDNISolone sod succ 125mg/2ml vial IV SCH ×3 (02:46→20:52)
[2019-03-17] MEDS: ipratropium/albuterol 3ml nebule NEB SCH ×6 (02:59→23:31)
[2019-03-17 03:27] LABS: BASOPHILS % (AUTO) 0.2 % (0-1); EOSINOPHILS % (AUTO) 0 % (0-6); HEMOGLOBIN 11.7 g/dl (14.0-17.9); LYMPHOCYTES # (AUTO) 0.8 X10'3 (1.1-4.8); MEAN CORPUSCULAR HEMOGLOBIN 30.4 PG (27.0-31.0); MEAN CORPUSCULAR HGB CONC 33.2 g/dL (33.0-36.5); WHITE BLOOD COUNT 13.1 X10'3 (4.5-11.0)
[2019-03-17 03:29] LABS: HEMATOCRIT 35.3 % (42.0-52.0); LYMPHOCYTES % (AUTO) 6.5 % (21-51); MEAN CORPUSCULAR VOLUME 91.6 FL (78-98); MEAN PLATELET VOLUME 9.3 FL (7.4-10.4); MONOCYTES # (AUTO) 0.8 X10'3 (0-0.9); MONOCYTES % (AUTO) 6.2 % (2-12); NEUTROPHILS # (AUTO) 11.4 X10'3 (1.8-7.7); NEUTROPHILS % (AUTO) 87.1 % (42-75); PLATELET COUNT 629 X10'3 (140-440); RED BLOOD COUNT 3.85 X10'6 (4.70-6.10); RED CELL DISTRIBUTION WIDTH 14.6 % (11.5-14.5)
[2019-03-17 04:08] LABS: ALANINE AMINOTRANSFERASE 154 U/L (12-78); ALBUMIN 2.5 G/DL (3.4-5.0); ALBUMIN/GLOBULIN RATIO 0.5 (1.1-1.5); ALKALINE PHOSPHATASE 379 IU/L (46-116); ANION GAP 8 (8-16); ASPARTATE AMINO TRANSFERASE 49 U/L (10-37); BILIRUBIN,TOTAL 0.3 MG/DL (0.1-1.0); BLOOD UREA NITROGEN 51 MG/DL (7-18); BUN/CREATININE RATIO 48.1 (5.4-32.0); CALCIUM 9.3 MG/DL (8.5-10.1); CHLORIDE 107 MMOL/L (99-107); CREATININE 1.06 MG/DL (0.60-1.10); GLUCOSE 179 MG/DL (70-104); MAGNESIUM 2.5 MG/DL (1.5-2.4); PHOSPHORUS 3.1 MG/DL (2.3-4.5); POTASSIUM 3.7 MMOL/L (3.5-5.1); SODIUM 145 MMOL/L (135-145); TOTAL CARBON DIOXIDE 29.9 MMOL/L (24-32); TOTAL PROTEIN 7.3 G/DL (6.4-8.2); eGFR 68 ML/MIN
--- NOTE | 2019-03-17 05:45 | NUR ---
RN Note -Shift Summary Pt was unable to sleep, and having increased anxiety.
--- NOTE | 2019-03-17 06:30 | NUR ---
Patient in room CICU 2008. I have received report from Mac RN and had the opportunity to ask questions and assume patient care. Patient laying in bed with eyes open on 3l NC, vital signs stable, mccoy to gravity, R PICC line infusing with a TKO of NS, patient showing no signs of distress will continue to monitor
--- NOTE | 2019-03-17 06:40 | NUR ---
Received in report that the patient within the last hour has been staring up at the ceiling, when asked orientation questions he answers appropriately. When i entered the room to assess the patient he was staring up at the wall, i asked him his name and which he answered appropriately, when asked where he was he stated that he could not remember, this is a change from the report given. Asked the patient if he could smile, equal with no droop, asked if he could commercial loan processor my hands, equal but weak, especially considering his length of stay with us and recent extubation. Consulted with electrical and instrument engineer and LADLE HANDLER , asked to get an ABG and Ammonia level, both are still pending. Also consulted with KYLE Snider about his ability to take PO meds, stated that he failed his RN bedside swallow eval yesterday with me, informed me to discuss with DR. Gamble about a possible NG tube as Speech pathology is not available on the weekends. Speech pathology consult was ordered 03/16 after failing the bedside RN swallow eval. No other new orders at this time Addendum: 03/17/19 at 1609 by Jeimy Tadeo RN Dr. Gamble requested that a corpac be placed
[2019-03-17 07:00] LABS: ABG BASE EXCESS 5.4 mmol/L (-2.0-3.0); ABG HCO3 28.3 mmol/L (22.0-26.0); ABG OXYGEN SATURATION 87.2 % (95-98); ABG PCO2 (T) 35.7 mmHg (35.0-45.0); ABG PH (T) 7.517 (7.350-7.450); ABG PO2 (T) 50.7 mmHg (83-108); ALLEN'S TEST Positive; FCOHb 0.3 % (0.5-1.5); FLOW 3 L/min; FMetHb 0.2 % (0.3-1.12); FO2Hb 86.8 % (94-100); TOTAL HEMOGLOBIN 12.6 G/dl (14.0-17.9)
[2019-03-17] MEDS: acetylcysteine 200 MG/ml 4ml vial INH SCH (07:26)
[2019-03-17] MEDS: budesonide 0.5mg/2ml UD nebule IH SCH ×2 (07:27→19:38)
--- NOTE | 2019-03-17 07:51 | NUR ---
patient had a 9 beat run of V-tach informed wire charger, will get a 12 lead EKG. Addendum: 03/17/19 at 1609 by Jeimy Tadeo RN Dr Gamble reviewed the strip and determined that it was a run of svt
[2019-03-17] MEDS: docusate sodium 100mg/10ml UD cup PO SCH ×2 (08:00→20:51)
[2019-03-17] MEDS: oxybutynin 5mg per 5ml oral solution OGT SCH ×2 (08:00→20:51)
[2019-03-17] MEDS: atorvastatin 20mg tablet OGT SCH (08:00)
[2019-03-17] MEDS: polyethylene glycol 3350 17gm powd pack OGT SCH (08:00)
[2019-03-17] MEDS: lactobacillus rhamnosus 10,000 MMU CELLS/CAPSULE OGT SCH ×2 (08:00→20:51)
[2019-03-17] MEDS: folic acid 1mg tablet OGT SCH (08:00)
[2019-03-17] MEDS: metoprolol tartrate 25mg tablet OGT SCH ×2 (08:00→20:51)
[2019-03-17] MEDS: aspirin 325mg tablet OGT SCH (08:00)
[2019-03-17] MEDS: pantoprazole 40 MG vial IV SCH (08:00)
[2019-03-17] MEDS: thiamine 100mg tablet OGT SCH (08:00)
[2019-03-17] MEDS: duloxetine 20mg capsule.DR PO SCH (08:00)
[2019-03-17] MEDS: clopidogrel 75mg tablet OGT SCH (08:00)
[2019-03-17] MEDS: MULTIVIT-MIN/FERROUS GLUCONATE 9 MG/15 ML LIQUID PO SCH (08:00)
[2019-03-17] MEDS: furosemide 40mg/4ml inj IV SCH ×2 (10:20→20:51)
[2019-03-17] MEDS: enoxaparin 40mg/0.4ml syringe SQ SCH (10:21)
[2019-03-17] MEDS: CefTRIAXone 2gm/D5W 50ml 50 ML IV SCH (10:21)
--- NOTE | 2019-03-17 11:23 | NUR ---
Corpak 8 Fr., 51cm at right nare. Patient was able to follow commands during procedure and tolerated well. No s/s of bleeding or distress. Patient has no complaints at this time.
--- NOTE | 2019-03-17 12:27 | NUR ---
Not in place per KUB, Corpak advanced to 70 cm, KUB re-ordered to be done in 45 minutes.
--- NOTE | 2019-03-17 12:50 | NUR ---
Called Dr Gamble to discuss corpac placement, he reviewed it and stated to start feeding the patient, also informed him of his recent troponin level of 0.07 he had no new orders or interventions for the troponin level. Will start vital HP at 30 and increase from there. Requested that i place a dietary consult for the patient as well.
--- NOTE | 2019-03-17 13:14 | NUR ---
TF consult: Pt has been extubated however failed BSS with RN. BSS with ST has been ordered, pt agreeable to Corpak in the mean time. Per RN notes Corpak not in place per KUB, tube advanced and pending f/u KUB. Pt confused and A/O x 2 per physical assessment. Pt continues with increased protein needs r/t sepsis. Recommend continuing TF using Vital High Protein at previously recommended goal rate of 100 mL/hr to meet nutrient needs. Pending confirmation placement of Corpak. [facility] 03/15. Will continue to follow. Rec: 1. Once Corpak confirmed in appropriate location, continuous tube feeding via NG tube using Vital High Protein at 100ml/hr goal. To provide 2400ml fluid, 2400kcals, 2016ml free water, and 210g protein. 2. Water flush 200ml Q4 3. prealbumin Q /, daily wts 4. routine bowel care 5. thiamin/folic for etoh hx 6. Advance diet as medically indicated to carb controlled/heart healthy per ST recs IF safe PO intake Addendum: 03/17/19 at [address] Amended: Links added.
[2019-03-17] MEDS ORDERED: magnesium 4gm in 100ml NS 100 ML IV PRN (13:20)
[2019-03-17] MEDS ORDERED: INSULIN R 100 UNIT in NS 100ML (1 UNIT/1 ML) BAG IV SCH (14:20)
[2019-03-17] MEDS: potassium Cl 20mEq/100mL bag 100 ML IV PRN (15:50)
--- NOTE | 2019-03-17 18:23 | NUR ---
Problems reprioritized. Patient report given, questions answered & plan of care reviewed with RalphRN.
[2019-03-17] MEDS: insulin regular, human vial - multi-dose SQ SCH (21:24)
[2019-03-17] MEDS: insulin glargine (Lantus) pen - multi-dose SQ SCH (21:25)
[2019-03-17] MEDS ORDERED: LORazepam 2 mg/ml vial IV PRN (22:15)
[2019-03-18] VITALS (22 sets, daily range): BP systolic 112–163; BP diastolic 57–75
[2019-03-18] MEDS: ipratropium/albuterol 3ml nebule NEB SCH ×6 (03:21→23:29)
[2019-03-18] MEDS: insulin regular, human vial - multi-dose SQ SCH ×4 (03:23→21:30)
[2019-03-18 03:41] LABS: EOSINOPHILS % (AUTO) 0 % (0-6); HEMOGLOBIN 12.2 g/dl (14.0-17.9); LYMPHOCYTES # (AUTO) 0.8 X10'3 (1.1-4.8); MEAN CORPUSCULAR HEMOGLOBIN 30.9 PG (27.0-31.0); NEUTROPHILS # (AUTO) 8.7 X10'3 (1.8-7.7); RED CELL DISTRIBUTION WIDTH 14.9 % (11.5-14.5)
[2019-03-18 03:44] LABS: BASOPHILS % (AUTO) 0.2 % (0-1); HEMATOCRIT 36.2 % (42.0-52.0); LYMPHOCYTES % (AUTO) 7.8 % (21-51); MEAN CORPUSCULAR HGB CONC 33.7 g/dL (33.0-36.5); MEAN CORPUSCULAR VOLUME 91.6 FL (78-98); MEAN PLATELET VOLUME 8.7 FL (7.4-10.4); MONOCYTES # (AUTO) 0.7 X10'3 (0-0.9); MONOCYTES % (AUTO) 7.3 % (2-12); NEUTROPHILS % (AUTO) 84.7 % (42-75); PLATELET COUNT 676 X10'3 (140-440); RED BLOOD COUNT 3.95 X10'6 (4.70-6.10); WHITE BLOOD COUNT 10.2 X10'3 (4.5-11.0)
[2019-03-18 03:55] LABS: ALANINE AMINOTRANSFERASE 136 U/L (12-78); ALBUMIN 2.6 G/DL (3.4-5.0); ALBUMIN/GLOBULIN RATIO 0.5 (1.1-1.5); ALKALINE PHOSPHATASE 328 IU/L (46-116); ANION GAP 9 (8-16); ASPARTATE AMINO TRANSFERASE 40 U/L (10-37); BILIRUBIN,TOTAL 0.3 MG/DL (0.1-1.0); BLOOD UREA NITROGEN 55 MG/DL (7-18); BUN/CREATININE RATIO 55.6 (5.4-32.0); CALCIUM 9.7 MG/DL (8.5-10.1); CHLORIDE 110 MMOL/L (99-107); CREATININE 0.99 MG/DL (0.60-1.10); GLUCOSE 247 MG/DL (70-104); MAGNESIUM 2.8 MG/DL (1.5-2.4); PHOSPHORUS 3.5 MG/DL (2.3-4.5); POTASSIUM 4.3 MMOL/L (3.5-5.1); SODIUM 148 MMOL/L (135-145); TOTAL CARBON DIOXIDE 29.2 MMOL/L (24-32); TOTAL PROTEIN 7.4 G/DL (6.4-8.2); eGFR 73 ML/MIN
--- NOTE | 2019-03-18 06:30 | NUR ---
Patient in room CICU 2008. I have received report from Mac RN and had the opportunity to ask questions and assume patient care.
[2019-03-18] MEDS: budesonide 0.5mg/2ml UD nebule IH SCH ×2 (07:51→19:43)
[2019-03-18] MEDS: K and/or MAG REPLACEMENT MC SCH (08:03)
[2019-03-18] MEDS: aspirin 325mg tablet OGT SCH (08:52)
[2019-03-18] MEDS: atorvastatin 20mg tablet OGT SCH (08:52)
[2019-03-18] MEDS: polyethylene glycol 3350 17gm powd pack OGT SCH (08:52)
[2019-03-18] MEDS: enoxaparin 40mg/0.4ml syringe SQ SCH (08:53)
[2019-03-18] MEDS: clopidogrel 75mg tablet OGT SCH (08:53)
[2019-03-18] MEDS: methylPREDNISolone sod succ 125mg/2ml vial IV SCH ×2 (08:54→21:02)
[2019-03-18] MEDS: docusate sodium 100mg/10ml UD cup PO SCH ×2 (08:54→21:03)
[2019-03-18] MEDS: furosemide 40mg/4ml inj IV SCH ×2 (08:54→21:02)
[2019-03-18] MEDS: thiamine 100mg tablet OGT SCH (08:54)
[2019-03-18] MEDS: pantoprazole 40 MG vial IV SCH (08:54)
[2019-03-18] MEDS: methylnaltrexone br 12mg/0.6ml inj***SubQ only SQ SCH (08:54)
[2019-03-18] MEDS: folic acid 1mg tablet OGT SCH (08:55)
[2019-03-18] MEDS: lactobacillus rhamnosus 10,000 MMU CELLS/CAPSULE OGT SCH ×2 (08:55→21:02)
[2019-03-18] MEDS: duloxetine 20mg capsule.DR PO SCH (08:55)
[2019-03-18] MEDS: metoprolol tartrate 25mg tablet OGT SCH ×2 (08:56→21:03)
[2019-03-18] MEDS: CefTRIAXone 2gm/D5W 50ml 50 ML IV SCH (08:58)
[2019-03-18] MEDS: normal saline 1000ml 1,000 ML IV SCH (08:58)
[2019-03-18] MEDS: MULTIVIT-MIN/FERROUS GLUCONATE 9 MG/15 ML LIQUID PO SCH (09:01)
[2019-03-18] MEDS: oxybutynin 5mg per 5ml oral solution OGT SCH ×2 (09:01→21:03)
--- NOTE | 2019-03-18 18:31 | NUR ---
Patient in room CICU 2008. I have received report from DOC Duran and had the opportunity to ask questions and assume patient care.
--- NOTE | 2019-03-18 20:00 | NUR ---
Patient is confused. He can answer name and date, location, and month and year correctly. He is not sure exactly why he is in the hospital. At times during care activities, patient will state "how much to I owe?" When referring to his call light, patient asks " can this call 911?" When asked what he needed 911 for, patient replied "to report this to someone." Patient then was unable to state what he needed to report when asked. Patient seems agitated tonight and keeps wanted to get out of bed. Education provided to patient on why he is un able to get out of bed at this time.
[2019-03-18] MEDS: insulin glargine (Lantus) pen - multi-dose SQ SCH (21:31)
[2019-03-19] VITALS (24 sets, daily range): BP systolic 131–169; BP diastolic 54–80
[2019-03-19] MEDS: insulin regular, human vial - multi-dose SQ SCH ×4 (02:01→20:51)
[2019-03-19 02:41] LABS: ALANINE AMINOTRANSFERASE 158 U/L (12-78); ALBUMIN 2.7 G/DL (3.4-5.0); ALBUMIN/GLOBULIN RATIO 0.6 (1.1-1.5); ALKALINE PHOSPHATASE 309 IU/L (46-116); ANION GAP 6 (8-16); ASPARTATE AMINO TRANSFERASE 60 U/L (10-37); BILIRUBIN,TOTAL 0.3 MG/DL (0.1-1.0); BLOOD UREA NITROGEN 54 MG/DL (7-18); BUN/CREATININE RATIO 55.7 (5.4-32.0); CALCIUM 9.2 MG/DL (8.5-10.1); CHLORIDE 109 MMOL/L (99-107); CREATININE 0.97 MG/DL (0.60-1.10); GLUCOSE 252 MG/DL (70-104); MAGNESIUM 2.5 MG/DL (1.5-2.4); PHOSPHORUS 2.9 MG/DL (2.3-4.5); POTASSIUM 4.3 MMOL/L (3.5-5.1); SODIUM 145 MMOL/L (135-145); TOTAL CARBON DIOXIDE 29.6 MMOL/L (24-32); TOTAL PROTEIN 7.3 G/DL (6.4-8.2); eGFR 75 ML/MIN
[2019-03-19 02:48] LABS: BASOPHILS % (AUTO) 0.1 % (0-1); EOSINOPHILS % (AUTO) 0 % (0-6); RED CELL DISTRIBUTION WIDTH 14.7 % (11.5-14.5)
[2019-03-19 02:51] LABS: HEMOGLOBIN 12.3 g/dl (14.0-17.9); LYMPHOCYTES # (AUTO) 0.8 X10'3 (1.1-4.8); LYMPHOCYTES % (AUTO) 7.1 % (21-51); MEAN CORPUSCULAR HEMOGLOBIN 30.8 PG (27.0-31.0); MEAN CORPUSCULAR HGB CONC 33.3 g/dL (33.0-36.5); MEAN CORPUSCULAR VOLUME 92.5 FL (78-98); MEAN PLATELET VOLUME 8.5 FL (7.4-10.4); MONOCYTES # (AUTO) 0.9 X10'3 (0-0.9); MONOCYTES % (AUTO) 8.1 % (2-12); NEUTROPHILS % (AUTO) 84.7 % (42-75); PLATELET COUNT 717 X10'3 (140-440); WHITE BLOOD COUNT 10.6 X10'3 (4.5-11.0)
[2019-03-19] MEDS: ipratropium/albuterol 3ml nebule NEB SCH ×6 (03:00→23:25)
--- NOTE | 2019-03-19 05:51 | NUR ---
[id number]: Patient appears to be sleeping.
--- NOTE | 2019-03-19 06:25 | NUR ---
Problems reprioritized. Patient report given, questions answered & plan of care reviewed with DOC Abreu.
--- NOTE | 2019-03-19 06:44 | NUR ---
Patient in room CICU 2008. I have received report from Rosemary and had the opportunity to ask questions and assume patient care with Henry.
[2019-03-19] MEDS: CefTRIAXone 2gm/D5W 50ml 50 ML IV SCH (07:27)
[2019-03-19] MEDS: thiamine 100mg tablet OGT SCH (07:29)
[2019-03-19] MEDS: clopidogrel 75mg tablet OGT SCH (07:29)
[2019-03-19] MEDS: metoprolol tartrate 25mg tablet OGT SCH ×2 (07:29→20:32)
[2019-03-19] MEDS: lactobacillus rhamnosus 10,000 MMU CELLS/CAPSULE OGT SCH ×2 (07:29→20:31)
[2019-03-19] MEDS: aspirin 325mg tablet OGT SCH (07:29)
[2019-03-19] MEDS: MULTIVIT-MIN/FERROUS GLUCONATE 9 MG/15 ML LIQUID PO SCH (07:29)
[2019-03-19] MEDS: folic acid 1mg tablet OGT SCH (07:30)
[2019-03-19] MEDS: docusate sodium 100mg/10ml UD cup PO SCH ×3 (07:30→20:32)
[2019-03-19] MEDS: polyethylene glycol 3350 17gm powd pack OGT SCH (07:30)
[2019-03-19] MEDS: duloxetine 20mg capsule.DR PO SCH (07:30)
[2019-03-19] MEDS: oxybutynin 5mg per 5ml oral solution OGT SCH ×2 (07:30→20:31)
[2019-03-19] MEDS: atorvastatin 20mg tablet OGT SCH (07:30)
[2019-03-19] MEDS: methylPREDNISolone sod succ 125mg/2ml vial IV SCH ×2 (07:31→20:31)
[2019-03-19] MEDS: pantoprazole 40 MG vial IV SCH (07:32)
[2019-03-19] MEDS: furosemide 40mg/4ml inj IV SCH ×2 (07:32→20:31)
[2019-03-19] MEDS: enoxaparin 40mg/0.4ml syringe SQ SCH (07:42)
[2019-03-19] MEDS: budesonide 0.5mg/2ml UD nebule IH SCH ×2 (07:53→20:04)
[2019-03-19] MEDS: K and/or MAG REPLACEMENT MC SCH (08:00)
[2019-03-19] MEDS ORDERED: LORazepam 2 mg/ml vial IM ONE (08:30)
--- NOTE | 2019-03-19 16:13 | NUR ---
Agree with assessment as charted by DOC Figueroa unless noted in my own assessment. Patient remains confused to place and time, recognizes , can name actors on TV. Strong cough, swallows sputum.
--- NOTE | 2019-03-19 18:20 | NUR ---
[facility] I have received report from DOC Tucker and had the opportunity to ask questions and assume patient care. Addendum: 03/20/19 at 2105 by Lashonda Mckeon RN WRONG DATE
--- NOTE | 2019-03-19 18:30 | NUR ---
Patient in room CICU 2008. I have received report from DOC Figueroa and DOC Abreu and had the opportunity to ask questions and assume patient care.
[2019-03-19] MEDS: insulin glargine (Lantus) pen - multi-dose SQ SCH (20:53)
[2019-03-19] MEDS ORDERED: Melatonin 3mg tablet PO SCH (21:00)
[2019-03-20] VITALS (21 sets, daily range): BP systolic 120–159; BP diastolic 50–77
[2019-03-20] MEDS: insulin regular, human vial - multi-dose SQ SCH ×3 (02:50→14:33)
[2019-03-20 03:17] LABS: BASOPHILS % (AUTO) 0.1 % (0-1); MEAN CORPUSCULAR VOLUME 92.1 FL (78-98); MEAN PLATELET VOLUME 8.5 FL (7.4-10.4)
[2019-03-20 03:18] LABS: EOSINOPHILS % (AUTO) 0.1 % (0-6); HEMATOCRIT 39.4 % (42.0-52.0); LYMPHOCYTES # (AUTO) 1.3 X10'3 (1.1-4.8); MEAN CORPUSCULAR HEMOGLOBIN 30.5 PG (27.0-31.0); MEAN CORPUSCULAR HGB CONC 33.1 g/dL (33.0-36.5); MONOCYTES # (AUTO) 0.7 X10'3 (0-0.9); MONOCYTES % (AUTO) 5.6 % (2-12); NEUTROPHILS % (AUTO) 84.2 % (42-75); PLATELET COUNT 720 X10'3 (140-440); RED BLOOD COUNT 4.28 X10'6 (4.70-6.10); RED CELL DISTRIBUTION WIDTH 14.6 % (11.5-14.5)
[2019-03-20 03:22] LABS: ALANINE AMINOTRANSFERASE 174 U/L (12-78); ALBUMIN 2.9 G/DL (3.4-5.0); ALBUMIN/GLOBULIN RATIO 0.6 (1.1-1.5); ALKALINE PHOSPHATASE 287 IU/L (46-116); ANION GAP 7 (8-16); ASPARTATE AMINO TRANSFERASE 59 U/L (10-37); BILIRUBIN,TOTAL 0.4 MG/DL (0.1-1.0); BLOOD UREA NITROGEN 52 MG/DL (7-18); BUN/CREATININE RATIO 61.9 (5.4-32.0); CALCIUM 9.3 MG/DL (8.5-10.1); CHLORIDE 105 MMOL/L (99-107); CREATININE 0.84 MG/DL (0.60-1.10); GLUCOSE 198 MG/DL (70-104); MAGNESIUM 2.2 MG/DL (1.5-2.4); PHOSPHORUS 4.3 MG/DL (2.3-4.5); POTASSIUM 4.9 MMOL/L (3.5-5.1); SODIUM 141 MMOL/L (135-145); TOTAL CARBON DIOXIDE 28.6 MMOL/L (24-32); TOTAL PROTEIN 7.5 G/DL (6.4-8.2); eGFR 88 ML/MIN
[2019-03-20] MEDS: ipratropium/albuterol 3ml nebule NEB SCH ×5 (03:25→19:41)
--- NOTE | 2019-03-20 06:30 | NUR ---
Patient in room CICU 2008. I have received report from Rosemary ROACH and had the opportunity to ask questions and assume patient care. Pt resting on bed, c/o mychal, TF infusing to Corpak without issue.
--- NOTE | 2019-03-20 06:32 | NUR ---
Problems reprioritized. Patient report given, questions answered & plan of care reviewed with DOC Tucker.
[2019-03-20] MEDS: budesonide 0.5mg/2ml UD nebule IH SCH (07:07)
[2019-03-20] MEDS: methylnaltrexone br 12mg/0.6ml inj***SubQ only SQ SCH (08:00)
[2019-03-20] MEDS: docusate sodium 100mg/10ml UD cup PO SCH (08:00)
[2019-03-20] MEDS: K and/or MAG REPLACEMENT MC SCH (08:00)
[2019-03-20] MEDS: polyethylene glycol 3350 17gm powd pack OGT SCH (08:00)
[2019-03-20] MEDS: pantoprazole 40 MG vial IV SCH (08:10)
[2019-03-20] MEDS: furosemide 40mg/4ml inj IV SCH (08:10)
[2019-03-20] MEDS: aspirin 325mg tablet OGT SCH (08:11)
[2019-03-20] MEDS: methylPREDNISolone sod succ 125mg/2ml vial IV SCH (08:11)
[2019-03-20] MEDS: CefTRIAXone 2gm/D5W 50ml 50 ML IV SCH (08:11)
[2019-03-20] MEDS: oxybutynin 5mg per 5ml oral solution OGT SCH (08:11)
[2019-03-20] MEDS: lactobacillus rhamnosus 10,000 MMU CELLS/CAPSULE OGT SCH (08:11)
[2019-03-20] MEDS: atorvastatin 20mg tablet OGT SCH (08:12)
[2019-03-20] MEDS: thiamine 100mg tablet OGT SCH (08:12)
[2019-03-20] MEDS: folic acid 1mg tablet OGT SCH (08:12)
[2019-03-20] MEDS: MULTIVIT-MIN/FERROUS GLUCONATE 9 MG/15 ML LIQUID PO SCH (08:12)
[2019-03-20] MEDS: clopidogrel 75mg tablet OGT SCH (08:12)
[2019-03-20] MEDS: metoprolol tartrate 25mg tablet OGT SCH (08:12)
[2019-03-20] MEDS: enoxaparin 40mg/0.4ml syringe SQ SCH (08:13)
[2019-03-20] MEDS: duloxetine 20mg capsule.DR PO SCH (08:13)
[2019-03-20] MEDS: normal saline 1000ml 1,000 ML IV SCH (09:32)
--- NOTE | 2019-03-20 13:02 | NUR ---
Reassessment: patient seen by ONCOLOGY CONSULTANT this morning, recommends pureed foods and thin liquids. Poor appetite, low PO intake 25-49%. continues with NG tube feedings with vital high protein, recommend to continue until patient eating at least 65% of meals. Pt confused and A/O x 2 per physical assessment. Pt continues with increased protein needs r/t sepsis. [facility] 03/18. Will continue to follow. Rec: 1. continuous tube feeding via NG tube using Vital High Protein at 100ml/hr goal. To provide 2400ml fluid, 2400kcals, 2016ml free water, and 210g protein. 2. Water flush 200ml q 4 hours 3. prealbumin Q /, daily wts 4. routine bowel care 5. thiamin/folic for etoh hx 6. Continue pureed diet with thin liquid per ONCOLOGY CONSULTANT recs Addendum: 03/20/19 at [address] Amended: Links added.
--- NOTE | 2019-03-20 18:20 | NUR ---
Patient in room CICU 2008. I have received report from DOC Tucker and had the opportunity to ask questions and assume patient care.
--- NOTE | 2019-03-20 18:26 | NUR ---
Problems reprioritized. Patient report given, questions answered & plan of care reviewed with Rosemary ROACH.
--- NOTE | 2019-03-20 19:48 | NUR ---
Patient report called to DOC Navarro at [facility]. Patient to be transported when [facility] has availability for transport unknown ETA on transport ambulance at this time. All questions answered. Transfer paperwork completed.
--- NOTE | 2019-03-20 20:24 | NUR ---
Transport Ambulance Crew here to transport. Report to DOC Mancia. Patient slid over to ambulance [facility]. All belongings with patient. Bah catheter and core pack in place. R upper arm PICC saline locked for transport. Patient is A&O x3 at this time, knows person, place he is being transferred to and month. Patient transported with all belongings. Neetu Navarro called to notify of patients transport. Patients Mrs. Martinez notified of transfer.
== END 2019-03-20 20:25 | DRG 853 ==
LOC: ER 15:41 → CICU 2S 23:31 → CMPBEDREQ 03-05 19:34
PROVIDERS: ADMIT Internal Medicine Critical Care Medicine; ATTEND Internal Medicine Critical Care Medicine
PROC: 5A09357 Assistance with Respiratory Ventilation, Less than 24 Consecutive Hours, Continuous Positive Airway Pressure (ICD-10-PCS; 2019-03-03)
PROC: 5A1955Z Respiratory Ventilation, Greater than 96 Consecutive Hours (ICD-10-PCS; principal; 2019-03-05)
PROC: 0BH17EZ Insertion of Endotracheal Airway into Trachea, Via Natural or Artificial Opening (ICD-10-PCS; 2019-03-05)
PROC: 02HV33Z Insertion of Infusion Device into Superior Vena Cava, Percutaneous Approach (ICD-10-PCS; 2019-03-05)
PROC: 4A02X4A Measurement of Cardiac Electrical Activity, Guidance, External Approach (ICD-10-PCS; 2019-03-05)
PROC: B548ZZA Ultrasonography of Superior Vena Cava, Guidance (ICD-10-PCS; 2019-03-05)
PROC: 027004Z Dilation of Coronary Artery, One Artery with Drug-eluting Intraluminal Device, Open Approach (ICD-10-PCS; 2019-03-06)
PROC: 4A023N8 Measurement of Cardiac Sampling and Pressure, Bilateral, Percutaneous Approach (ICD-10-PCS; 2019-03-06)
PROC: B2111ZZ Fluoroscopy of Multiple Coronary Arteries using Low Osmolar Contrast (ICD-10-PCS; 2019-03-06)
PROC: B2151ZZ Fluoroscopy of Left Heart using Low Osmolar Contrast (ICD-10-PCS; 2019-03-06)
DX: A41.9 Sepsis, unspecified organism (principal); I21.4 Non-ST elevation (NSTEMI) myocardial infarction; J96.01 Acute respiratory failure with hypoxia; F10.239 Alcohol dependence with withdrawal, unspecified; N39.0 Urinary tract infection, site not specified; I69.354 Hemiplegia and hemiparesis following cerebral infarction affecting left non-dominant side; E11.9 Type 2 diabetes mellitus without complications; E66.01 Morbid (severe) obesity due to excess calories; E78.00 Pure hypercholesterolemia, unspecified; E78.5 Hyperlipidemia, unspecified; F17.210 Nicotine dependence, cigarettes, uncomplicated; F32.9 Major depressive disorder, single episode, unspecified; G47.33 Obstructive sleep apnea (adult) (pediatric); M19.90 Unspecified osteoarthritis, unspecified site; B96.1 Klebsiella pneumoniae [K. pneumoniae] as the cause of diseases classified elsewhere; I10 Essential (primary) hypertension; I25.10 Atherosclerotic heart disease of native coronary artery without angina pectoris; Z66 Do not resuscitate; Z82.5 Family history of asthma and other chronic lower respiratory diseases; Z82.49 Family history of ischemic heart disease and other diseases of the circulatory system; Z79.84 Long term (current) use of oral hypoglycemic drugs; Z88.6 Allergy status to analgesic agent; Z95.5 Presence of coronary angioplasty implant and graft; I25.2 Old myocardial infarction; Z79.899 Other long term (current) drug therapy; Z90.49 Acquired absence of other specified parts of digestive tract; Z98.49 Cataract extraction status, unspecified eye; Z68.31 Body mass index [BMI] 31.0-31.9, adult
CPT/HCPCS: 36569; 93306; 93460; 96361; 96365; 96366; 96368; 96372; 96375; 96376; 99291; C9607; 36415; 36600; 71045; 71046; 74018; 76937; 80048; 80053; 80076; 80202; 81001; 82140; 82150; 82803; 82948; 83036; 83605; 83690; 83735; 83880; 84100; 84134; 84145; 84443; 84484; 85014; 85018; 85025; 85347; 85610; 85730; 87040; 87070; 87077; 87081; 87088; 87186; 92508; 92616; 93005; 94002; 94003; 94640; 94660; 94667; 94668; 94760; 97110; 97161; 97530; 97535; 99152; 99153; C1725; C1769; C1874; C1894; C9113; G0378; J0696; J1644; J1650; J1815; J1940; J2001; J2060; J2212; J2250; J2543; J2930; J3010; J3370; J3411; J3480; J3490; J7050; J7060; J7626; Q9967

== ENCOUNTER 2019-08-31 09:10 | Day surgery (SDC) | payer OTHER ==
[~2019-08-31 09:10] MED LIST changes: -ASPI81TA52 PO; +BUDE10.22 INH; +DULO20CA50 PO; +IPRA4AER IH; +OXYB10TA4 PO; -OXYB5TAB16 PO; +POLY17PO10 PO; -ROSU10TA2 PO; +ROSU20TA31 PO; -etomidate 2mg/ml inj. ONE
[2019-08-31] MEDS ORDERED: LIDOcaine 2% 5ml jelly ONE (10:23)
== END 2019-08-31 10:38 | disposition home or self-care (01) ==
LOC: WOUND CARE 09:10
PROVIDERS: ATTEND Surgery
DX: I70.211 Atherosclerosis of native arteries of extremities with intermittent claudication, right leg (principal); E11.65 Type 2 diabetes mellitus with hyperglycemia; E11.36 Type 2 diabetes mellitus with diabetic cataract; J44.9 Chronic obstructive pulmonary disease, unspecified; E78.5 Hyperlipidemia, unspecified; M19.90 Unspecified osteoarthritis, unspecified site; I25.10 Atherosclerotic heart disease of native coronary artery without angina pectoris; I10 Essential (primary) hypertension; E66.01 Morbid (severe) obesity due to excess calories; G47.33 Obstructive sleep apnea (adult) (pediatric); I25.2 Old myocardial infarction; E78.00 Pure hypercholesterolemia, unspecified; F32.9 Major depressive disorder, single episode, unspecified; F17.210 Nicotine dependence, cigarettes, uncomplicated; Z79.84 Long term (current) use of oral hypoglycemic drugs; Z68.31 Body mass index [BMI] 31.0-31.9, adult; Z98.49 Cataract extraction status, unspecified eye; Z79.899 Other long term (current) drug therapy; Z86.73 Personal history of transient ischemic attack (TIA), and cerebral infarction without residual deficits; Z90.49 Acquired absence of other specified parts of digestive tract; Z95.1 Presence of aortocoronary bypass graft
CPT/HCPCS: 36416; 82948; 97597

== ENCOUNTER 2019-09-07 10:19 | Day surgery (SDC) | payer OTHER ==
[2019-09-07] MEDS ORDERED: LIDOcaine 2% 5ml jelly ONE (10:49)
== END 2019-09-07 11:48 | disposition home or self-care (01) ==
LOC: WOUND CARE 10:19
PROVIDERS: ATTEND Surgery
DX: I70.211 Atherosclerosis of native arteries of extremities with intermittent claudication, right leg (principal); E11.65 Type 2 diabetes mellitus with hyperglycemia; E11.36 Type 2 diabetes mellitus with diabetic cataract; J44.9 Chronic obstructive pulmonary disease, unspecified; E78.5 Hyperlipidemia, unspecified; M19.90 Unspecified osteoarthritis, unspecified site; I25.10 Atherosclerotic heart disease of native coronary artery without angina pectoris; I10 Essential (primary) hypertension; E66.01 Morbid (severe) obesity due to excess calories; G47.33 Obstructive sleep apnea (adult) (pediatric); I25.2 Old myocardial infarction; E78.00 Pure hypercholesterolemia, unspecified; F32.9 Major depressive disorder, single episode, unspecified; F17.210 Nicotine dependence, cigarettes, uncomplicated; Z79.84 Long term (current) use of oral hypoglycemic drugs; Z68.31 Body mass index [BMI] 31.0-31.9, adult; Z98.49 Cataract extraction status, unspecified eye; Z79.899 Other long term (current) drug therapy; Z86.73 Personal history of transient ischemic attack (TIA), and cerebral infarction without residual deficits; Z90.49 Acquired absence of other specified parts of digestive tract; Z95.1 Presence of aortocoronary bypass graft
CPT/HCPCS: 97597

== ENCOUNTER 2019-09-14 10:06 | Day surgery (SDC) | payer OTHER ==
[2019-09-14] MEDS ORDERED: LIDOcaine 2% 5ml jelly ONE (10:58)
== END 2019-09-14 12:03 | disposition home or self-care (01) ==
LOC: WOUND CARE 10:06
PROVIDERS: ATTEND Surgery
DX: I70.211 Atherosclerosis of native arteries of extremities with intermittent claudication, right leg (principal); E11.65 Type 2 diabetes mellitus with hyperglycemia; E11.36 Type 2 diabetes mellitus with diabetic cataract; J44.9 Chronic obstructive pulmonary disease, unspecified; E78.5 Hyperlipidemia, unspecified; M19.90 Unspecified osteoarthritis, unspecified site; I25.10 Atherosclerotic heart disease of native coronary artery without angina pectoris; I10 Essential (primary) hypertension; E66.01 Morbid (severe) obesity due to excess calories; G47.33 Obstructive sleep apnea (adult) (pediatric); I25.2 Old myocardial infarction; E78.00 Pure hypercholesterolemia, unspecified; F32.9 Major depressive disorder, single episode, unspecified; F17.210 Nicotine dependence, cigarettes, uncomplicated; Z79.84 Long term (current) use of oral hypoglycemic drugs; Z68.31 Body mass index [BMI] 31.0-31.9, adult; Z98.49 Cataract extraction status, unspecified eye; Z79.899 Other long term (current) drug therapy; Z86.73 Personal history of transient ischemic attack (TIA), and cerebral infarction without residual deficits; Z90.49 Acquired absence of other specified parts of digestive tract; Z95.1 Presence of aortocoronary bypass graft
CPT/HCPCS: 97597; A4663; A6021; A6154

== ENCOUNTER 2019-09-21 10:33 | Day surgery (SDC) | payer OTHER ==
[2019-09-21] MEDS ORDERED: LIDOcaine 2% 5ml jelly ONE (11:13)
== END 2019-09-21 11:56 | disposition home or self-care (01) ==
LOC: WOUND CARE 10:33
PROVIDERS: ATTEND Surgery
DX: E11.622 Type 2 diabetes mellitus with other skin ulcer (principal); L97.812 Non-pressure chronic ulcer of other part of right lower leg with fat layer exposed; I70.211 Atherosclerosis of native arteries of extremities with intermittent claudication, right leg; E11.65 Type 2 diabetes mellitus with hyperglycemia; E11.36 Type 2 diabetes mellitus with diabetic cataract; J44.9 Chronic obstructive pulmonary disease, unspecified; E78.5 Hyperlipidemia, unspecified; M19.90 Unspecified osteoarthritis, unspecified site; I25.10 Atherosclerotic heart disease of native coronary artery without angina pectoris; I10 Essential (primary) hypertension; E66.01 Morbid (severe) obesity due to excess calories; G47.33 Obstructive sleep apnea (adult) (pediatric); I25.2 Old myocardial infarction; E78.00 Pure hypercholesterolemia, unspecified; F32.9 Major depressive disorder, single episode, unspecified; F17.210 Nicotine dependence, cigarettes, uncomplicated; Z79.84 Long term (current) use of oral hypoglycemic drugs; Z68.31 Body mass index [BMI] 31.0-31.9, adult; Z98.49 Cataract extraction status, unspecified eye; Z79.899 Other long term (current) drug therapy; Z86.73 Personal history of transient ischemic attack (TIA), and cerebral infarction without residual deficits; Z90.49 Acquired absence of other specified parts of digestive tract; Z95.1 Presence of aortocoronary bypass graft
CPT/HCPCS: 97597; A4663; A6021; A6154; A6212

== ENCOUNTER 2019-09-28 10:15 | Day surgery (SDC) | payer OTHER | END 2019-09-28 11:12 | disposition home or self-care (01) | LOC: WOUND CARE 10:15 | PROVIDERS: ATTEND Surgery | DX: E11.622 Type 2 diabetes mellitus with other skin ulcer (principal); L97.812 Non-pressure chronic ulcer of other part of right lower leg with fat layer exposed; I70.211 Atherosclerosis of native arteries of extremities with intermittent claudication, right leg; E11.65 Type 2 diabetes mellitus with hyperglycemia; E11.36 Type 2 diabetes mellitus with diabetic cataract; J44.9 Chronic obstructive pulmonary disease, unspecified; E78.5 Hyperlipidemia, unspecified; M19.90 Unspecified osteoarthritis, unspecified site; I25.10 Atherosclerotic heart disease of native coronary artery without angina pectoris; I10 Essential (primary) hypertension; E66.01 Morbid (severe) obesity due to excess calories; G47.33 Obstructive sleep apnea (adult) (pediatric); I25.2 Old myocardial infarction; E78.00 Pure hypercholesterolemia, unspecified; F32.9 Major depressive disorder, single episode, unspecified; F17.210 Nicotine dependence, cigarettes, uncomplicated; Z79.84 Long term (current) use of oral hypoglycemic drugs; Z68.31 Body mass index [BMI] 31.0-31.9, adult; Z98.49 Cataract extraction status, unspecified eye; Z79.899 Other long term (current) drug therapy; Z86.73 Personal history of transient ischemic attack (TIA), and cerebral infarction without residual deficits; Z90.49 Acquired absence of other specified parts of digestive tract; Z95.1 Presence of aortocoronary bypass graft | CPT/HCPCS: 97597 ==

== ENCOUNTER 2020-06-24 10:17 | Emergency (ER) | payer OTHER, MEDICARE ==
[~2020-06-24] VITALS: Ht 180.3 cm; Wt 120.0 kg
--- NOTE | 2020-06-24 10:37 | NUR ---
Recevied call frf Addendum: 06/24/20 at 1037 by RSTEWART MARIA LUISA Chirinos OR clinicl called stated pt en route via POV for further diagnostics d/t reproducible chest wall pain. Audible coarse wheezes noted upon his arrival at clinic; inhaler administration provided w/ improvement. HX: COPD, CHF, PVD
[2020-06-24] MEDS ORDERED: ketorolac trometh. 30mg/ml inj. IV ONE (11:05)
[2020-06-24 11:16] LABS: BASOPHILS % (AUTO) 0.5 % (0-1); EOSINOPHILS # (AUTO) 0.1 X10'3 (0-0.9); EOSINOPHILS % (AUTO) 0.7 % (0-6); HEMATOCRIT 50.7 % (42.0-52.0); HEMOGLOBIN 17.2 g/dl (14.0-17.9); LYMPHOCYTES # (AUTO) 1.1 X10'3 (1.1-4.8); LYMPHOCYTES % (AUTO) 11.8 % (21-51); MEAN CORPUSCULAR HEMOGLOBIN 31.8 PG (27.0-31.0); MEAN CORPUSCULAR HGB CONC 33.9 g/dL (33.0-36.5); MEAN PLATELET VOLUME 8.1 FL (7.4-10.4); MONOCYTES # (AUTO) 0.7 X10'3 (0-0.9); MONOCYTES % (AUTO) 7.6 % (2-12); NEUTROPHILS # (AUTO) 7.6 X10'3 (1.8-7.7); NEUTROPHILS % (AUTO) 79.4 % (42-75); PLATELET COUNT 292 X10'3 (140-440); RED BLOOD COUNT 5.39 X10'6 (4.70-6.10); RED CELL DISTRIBUTION WIDTH 13.3 % (11.5-14.5); WHITE BLOOD COUNT 9.5 X10'3 (4.5-11.0)
[2020-06-24 11:44] LABS: ALANINE AMINOTRANSFERASE 47 U/L (12-78); ALBUMIN 4.1 G/DL (3.4-5.0); ALBUMIN/GLOBULIN RATIO 1.2 (1.1-1.5); ALKALINE PHOSPHATASE 114 IU/L (46-116); ANION GAP 9 (8-16); ASPARTATE AMINO TRANSFERASE 19 U/L (10-37); BILIRUBIN,TOTAL 0.6 MG/DL (0.1-1.0); BLOOD UREA NITROGEN 20 MG/DL (7-18); BUN/CREATININE RATIO 19.2 (5.4-32.0); CALCIUM 9.3 MG/DL (8.5-10.1); CHLORIDE 112 MMOL/L (99-107); CREATININE 1.04 MG/DL (0.60-1.10); GLUCOSE 142 MG/DL (70-104); POTASSIUM 4.3 MMOL/L (3.5-5.1); SODIUM 145 MMOL/L (135-145); TOTAL CARBON DIOXIDE 23.8 MMOL/L (24-32); TOTAL PROTEIN 7.6 G/DL (6.4-8.2); eGFR 69 ML/MIN
[2020-06-24 12:43] VITALS: BP 168/85
== END 2020-06-24 14:30 | disposition home or self-care (01) ==
LOC: ER 10:18
DX: R06.02 Shortness of breath (principal); J44.9 Chronic obstructive pulmonary disease, unspecified; I25.10 Atherosclerotic heart disease of native coronary artery without angina pectoris; E78.00 Pure hypercholesterolemia, unspecified; I10 Essential (primary) hypertension; E11.9 Type 2 diabetes mellitus without complications; Z90.49 Acquired absence of other specified parts of digestive tract; Z98.890 Other specified postprocedural states; Z98.61 Coronary angioplasty status; Z72.89 Other problems related to lifestyle; Z88.6 Allergy status to analgesic agent; Z79.899 Other long term (current) drug therapy
CPT/HCPCS: 36415; 71045; 80053; 83735; 84484; 85025; 85610; 93005; 96374; 99285; J1885